=== PATIENT | female | born 1955 | race Caucasian/White ===

== ENCOUNTER 2016-07-28 19:03 | Inpatient (IN) | payer MEDICARE, MEDICAID ==
[~2016-07-28] VITALS: Ht 157.5 cm; Wt 123.0 kg
[~2016-07-28 19:03] MED LIST: FURO40TA; GABA300C8 PO; LISI-646; POTA8TAB2
[2016-07-28 21:15] LABS: DEFINITIVE VIEW TRANSMISSION; Hemoglobin 14.1 g/dL (12.2-16.2); Mean Corpuscular Hemoglobin 25.1 pg (28.0-32.0); Mean Corpuscular Hgb Conc. 32.1 g/dL (32.0-36.0); Mean Corpuscular Volume 78.2 fL (80.0-100.0); Mean Platelet Volume 11.4 fL (7.4-10.4); Platelet Count (auto) 242 10^3/uL (140-450); Red Cell Distribution Width 16.3 % (11.6-16.0); SUSPECT VIEW TRANSMISSION
[2016-07-28 21:26] LABS: White Blood Cell 34.3 10^3/uL (4.4-10.8)
[2016-07-28 21:27] LABS: Metamyelocytes % 0; Myelocytes % 0; Promyelocytes % 0; Reactive Lymphocytes 0
[2016-07-28 21:36] LABS: Partial Thromboplastin Time 34.3 sec (22.64-33.71)
[2016-07-28 21:37] LABS: Albumin 2.6 g/dL (3.4-5.0); BUN/Creatinine Ratio 16.7; Calcium 9.2 mg/dL (8.5-10.1); Magnesium 1.9 mg/dL (1.6-2.6); Potassium 3.8 mmol/L (3.5-5.1)
[2016-07-28 21:39] LABS: Bilirubin, Total 0.9 mg/dL (0.2-1.0); Total Protein 8.3 g/dL (6.4-8.2)
[2016-07-28 21:52] LABS: INR 1.3 (0.9-1.15); Prothrombin Time 13.4 sec (9.37-12.3)
[2016-07-28] MEDS ORDERED: FUROSEMIDE 20 MG/2 ML VIAL IV ONE (22:45)
[2016-07-28 22:58] LABS: Hypochromia Slight; Microcytosis Slight; Platelet Estimate Adequate
[2016-07-29] MEDS ORDERED: LEVOFLOXACIN 750MG 150 ML IV ONE (02:45)
[2016-07-29 03:20] LABS: B-Type Natriuretic Peptide 189.1 pg/mL (0-100); Temperature: 21.1 C (20.0-25.0)
[2016-07-29] MEDS ORDERED: ACETAMINOPHEN 650 mg PER 20 mL UD PO ONE (03:45)
[2016-07-29] MEDS ORDERED: IPRATROPIUM BROM 0.5 MG/2.5ML INH SOL NEB ONE (04:00)
[2016-07-29] MEDS ORDERED: ALBUTEROL SULF 2.5 MG/0.5ML(0.5%) NEB SOLN NEB ONE (04:00)
[2016-07-29] MEDS ORDERED: traMADol HCL 50 MG TAB PO ONE (05:30)
[2016-07-29 08:00] LABS: Urine Bilirubin Negative (Negative); Urine Color Yellow (Yellow); Urine Glucose Normal (Normal); Urine Ketone Negative (Negative); Urine Mucus FEW (None Seen); Urine Nitrite Negative (Negative); Urine RBC 6 /hpf (0 - 4); Urine Squamous Epithelial Cell FEW /hpf (<5); Urine Urobilinogen Normal (Negative); Urine pH 5.5 (5.0-8.0)
[2016-07-29 08:03] LABS: Urine Blood 1+ /uL (Negative)
[2016-07-29] MEDS ORDERED: DEXTROSE (50%) 50ML SYRG IV PRN (09:00)
[2016-07-29] MEDS ORDERED: VANCOMYCIN PER PHARMACY 0 MG IV SCH (09:00)
[2016-07-29] MEDS ORDERED: PROMETHAZINE HCL 25 MG/ML 1ML IV PRN (09:15)
[2016-07-29] MEDS ORDERED: DOCUSATE SOD 100 MG CAP PO PRN (09:15)
[2016-07-29] MEDS ORDERED: MORPHINE SULF INJ 2 MG/ML SYRINGE 1ML IV PRN ×2 (09:15)
[2016-07-29] MEDS ORDERED: NITROGLYCERIN 0.4 MG SL TAB SL PRN (09:15)
[2016-07-29] MEDS: cefTRIAXone 1GM/50ML D5W 50 ML IV SCH (10:23)
[2016-07-29] MEDS: POTASSIUM CHLORIDE 8 MEQ TAB PO SCH (10:23)
[2016-07-29] MEDS: FAMOTIDINE 20 MG TAB PO SCH ×2 (10:24→21:35)
[2016-07-29] MEDS: MULTIPLE VITAMIN TAB PO SCH (10:24)
[2016-07-29] MEDS: LISINOPRIL 20 MG TAB PO SCH (10:24)
[2016-07-29] MEDS: GABAPENTIN 300 MG CAP PO SCH ×2 (10:24→21:35)
[2016-07-29] MEDS: INSULIN DETEMIR(LEVEMIR) 1unit/0.01ml Soln (100units/ml) SC SCH ×2 (10:25→21:54)
[2016-07-29] MEDS ORDERED: VANCOMYCIN 1,500 MG in D5W 5% 250 ML IV ONE (10:30)
[2016-07-29] MEDS: SODIUM CHLORIDE 0.9% 1,000 ML IV SCH ×2 (11:23→19:30)
[2016-07-29] MEDS: ACCU-CHEK COMFORT CURVE STRIP VI SCH ×3 (11:47→21:35)
[2016-07-29] MEDS: InsuLIN REG 1unit/0.01ml Soln (100units/ml) SC SCH ×3 (11:47→21:53)
[2016-07-29 13:02] VITALS: BP 127/89
[2016-07-29] MEDS: Boost Glucose Control 8 Ounces PO SCH ×3 (13:19→21:35)
[2016-07-29 13:26] VITALS: BP 127/89
[2016-07-29] MEDS ORDERED: POTA8TAB2 PO (13:42)
[2016-07-29] MEDS ORDERED: GABA300C8 PO (13:42)
[2016-07-29] MEDS ORDERED: FURO40TA4 PO (13:42)
[2016-07-29] MEDS ORDERED: LISI-646 PO (13:42)
[2016-07-29] MEDS ORDERED: POTA10TA79 PO (13:42)
[2016-07-29] MEDS: IPRATROPIUM BROM 0.5 MG/2.5ML INH SOL NEB SCH ×2 (14:00→22:24)
[2016-07-29] MEDS: ALBUTEROL SULF 2.5 MG/0.5ML(0.5%) NEB SOLN NEB SCH ×2 (14:00→22:24)
[2016-07-29 16:39] VITALS: BP 118/77
[2016-07-29 22:00] VITALS: BP 111/54
[2016-07-30 01:44] VITALS: BP 108/56
[2016-07-30] MEDS: SODIUM CHLORIDE 0.9% 1,000 ML IV SCH ×2 (03:57→09:48)
[2016-07-30] MEDS: ACETAMINOPHEN 325 MG TAB PO PRN ×2 (04:02→10:58)
[2016-07-30 05:00] VITALS: BP 122/60
[2016-07-30] MEDS: Boost Glucose Control 8 Ounces PO SCH ×4 (05:42→21:33)
[2016-07-30 06:24] LABS: DEFINITIVE VIEW TRANSMISSION; Hematocrit 34.5 % (36.0-46.0); Hemoglobin 10.9 g/dL (12.2-16.2); Mean Corpuscular Hemoglobin 25.1 pg (28.0-32.0); Mean Corpuscular Hgb Conc. 31.7 g/dL (32.0-36.0); Mean Platelet Volume 10.9 fL (7.4-10.4); Platelet Count (auto) 185 10^3/uL (140-450); SUSPECT VIEW TRANSMISSION; White Blood Cell 20.5 10^3/uL (4.4-10.8)
[2016-07-30] MEDS: InsuLIN REG 1unit/0.01ml Soln (100units/ml) SC SCH ×4 (06:35→21:34)
[2016-07-30] MEDS: ACCU-CHEK COMFORT CURVE STRIP VI SCH ×4 (06:35→21:31)
[2016-07-30 06:39] LABS: Metamyelocytes % 0; Myelocytes % 0; Promyelocytes % 0; Reactive Lymphocytes 0
[2016-07-30 06:48] LABS: Albumin 1.6 g/dL (3.4-5.0); BUN/Creatinine Ratio 26.2; Calcium 8.2 mg/dL (8.5-10.1); Potassium 3.9 mmol/L (3.5-5.1)
[2016-07-30 06:51] LABS: Bilirubin, Total 0.2 mg/dL (0.2-1.0); Total Protein 6.3 g/dL (6.4-8.2)
[2016-07-30 06:56] LABS: Hypochromia Slight; Microcytosis Slight; Platelet Estimate Adequate
[2016-07-30] MEDS: ALBUTEROL SULF 2.5 MG/0.5ML(0.5%) NEB SOLN NEB SCH ×2 (07:03→20:26)
[2016-07-30] MEDS: IPRATROPIUM BROM 0.5 MG/2.5ML INH SOL NEB SCH ×2 (07:03→20:26)
[2016-07-30] MEDS: cefTRIAXone 1GM/50ML D5W 50 ML IV SCH (09:00)
[2016-07-30 09:15] VITALS: BP 107/68
[2016-07-30] MEDS: GABAPENTIN 300 MG CAP PO SCH ×2 (09:43→21:33)
[2016-07-30] MEDS: MULTIPLE VITAMIN TAB PO SCH (09:43)
[2016-07-30] MEDS: POTASSIUM CHLORIDE 8 MEQ TAB PO SCH (09:44)
[2016-07-30] MEDS: FUROSEMIDE 40 MG TAB PO SCH (09:44)
[2016-07-30] MEDS: FAMOTIDINE 20 MG TAB PO SCH ×2 (09:44→21:33)
[2016-07-30] MEDS: LISINOPRIL 20 MG TAB PO SCH (09:45)
[2016-07-30] MEDS: INSULIN DETEMIR(LEVEMIR) 1unit/0.01ml Soln (100units/ml) SC SCH ×2 (09:52→21:43)
[2016-07-30] MEDS: VANCOMYCIN 1,250 MG in D5W 5% 250 ML IV SCH (11:03)
[2016-07-30 13:00] VITALS: BP 113/71
[2016-07-30 17:00] VITALS: BP 106/64
[2016-07-30] MEDS: HYDROcodone-ACET 5/325MG TAB PO PRN ×2 (17:40→21:33)
[2016-07-30 21:52] VITALS: BP 103/66
[2016-07-31] MEDS: SODIUM CHLORIDE 0.9% 1,000 ML IV SCH ×3 (01:17→21:33)
[2016-07-31] MEDS: HYDROcodone-ACET 5/325MG TAB PO PRN ×2 (03:25→15:20)
[2016-07-31 04:39] VITALS: BP 99/65
[2016-07-31] MEDS: Boost Glucose Control 8 Ounces PO SCH ×4 (05:37→21:35)
[2016-07-31 06:03] LABS: Basophils # (auto) 0 uL; Basophils % (auto) 0.3 % (0.0-2.0); DEFINITIVE VIEW TRANSMISSION; Eosinophils # (auto) 0.3 uL; Eosinophils % (auto) 2.9 % (0.0-7.0); Hematocrit 32.1 % (36.0-46.0); Hemoglobin 10.2 g/dL (12.2-16.2); Lymphocytes # (auto) 1.3 uL; Lymphocytes % (auto) 12.1 % (10.0-50.0); Mean Corpuscular Hgb Conc. 31.9 g/dL (32.0-36.0); Mean Corpuscular Volume 78.6 fL (80.0-100.0); Mean Platelet Volume 10.5 fL (7.4-10.4); Monocytes # (auto) 0.9 uL; Monocytes % (auto) 7.9 % (0.0-12.0); Neutrophils # (auto) 8.3 uL; Neutrophils % (auto) 76.8 % (37.0-80.0); Platelet Count (auto) 201 10^3/uL (140-450); Red Cell Distribution Width 17.4 % (11.6-16.0); White Blood Cell 10.8 10^3/uL (4.4-10.8)
[2016-07-31] MEDS: InsuLIN REG 1unit/0.01ml Soln (100units/ml) SC SCH ×5 (06:31→22:03)
[2016-07-31] MEDS: ACCU-CHEK COMFORT CURVE STRIP VI SCH ×4 (06:31→21:41)
[2016-07-31] MEDS: ALBUTEROL SULF 2.5 MG/0.5ML(0.5%) NEB SOLN NEB SCH ×4 (06:35→21:45)
[2016-07-31] MEDS: IPRATROPIUM BROM 0.5 MG/2.5ML INH SOL NEB SCH ×3 (06:35→21:45)
[2016-07-31 06:51] LABS: Albumin 1.7 g/dL (3.4-5.0); BUN/Creatinine Ratio 35.6; Bilirubin, Total 0.2 mg/dL (0.2-1.0); Calcium 8.4 mg/dL (8.5-10.1); Potassium 3.9 mmol/L (3.5-5.1); Total Protein 6.1 g/dL (6.4-8.2)
[2016-07-31 09:00] VITALS: BP 107/78
[2016-07-31] MEDS: cefTRIAXone 1GM/50ML D5W 50 ML IV SCH (09:00)
[2016-07-31] MEDS: FAMOTIDINE 20 MG TAB PO SCH ×2 (10:00→21:33)
[2016-07-31] MEDS: LISINOPRIL 20 MG TAB PO SCH (11:07)
[2016-07-31] MEDS: GABAPENTIN 300 MG CAP PO SCH ×2 (11:08→21:33)
[2016-07-31] MEDS: MULTIPLE VITAMIN TAB PO SCH (11:08)
[2016-07-31] MEDS: FUROSEMIDE 40 MG TAB PO SCH (11:08)
[2016-07-31] MEDS: POTASSIUM CHLORIDE 8 MEQ TAB PO SCH (11:08)
[2016-07-31] MEDS: INSULIN DETEMIR(LEVEMIR) 1unit/0.01ml Soln (100units/ml) SC SCH ×2 (11:12→22:00)
[2016-07-31] MEDS: VANCOMYCIN 1,250 MG in D5W 5% 250 ML IV SCH (12:49)
[2016-07-31 13:00] VITALS: BP 137/83
[2016-07-31 16:38] VITALS: BP 129/83
[2016-07-31 22:00] VITALS: BP 124/77
[2016-08-01] MEDS: HYDROcodone-ACET 5/325MG TAB PO PRN (00:36)
[2016-08-01] MEDS: SODIUM CHLORIDE 0.9% 1,000 ML IV SCH ×3 (05:00→20:25)
[2016-08-01 05:15] LABS: Basophils # (auto) 0.1 uL; Basophils % (auto) 0.5 % (0.0-2.0); DEFINITIVE VIEW TRANSMISSION; Eosinophils # (auto) 0.4 uL; Eosinophils % (auto) 3.8 % (0.0-7.0); Hematocrit 33.1 % (36.0-46.0); Hemoglobin 10.6 g/dL (12.2-16.2); Lymphocytes % (auto) 17.6 % (10.0-50.0); Mean Corpuscular Hemoglobin 25.6 pg (28.0-32.0); Mean Corpuscular Hgb Conc. 32.1 g/dL (32.0-36.0); Mean Corpuscular Volume 79.8 fL (80.0-100.0); Mean Platelet Volume 9.3 fL (7.4-10.4); Monocytes # (auto) 0.8 uL; Monocytes % (auto) 7.1 % (0.0-12.0); Neutrophils # (auto) 7.8 uL; Platelet Count (auto) 189 10^3/uL (140-450); Red Cell Distribution Width 16.2 % (11.6-16.0); SUSPECT VIEW TRANSMISSION; White Blood Cell 11.1 10^3/uL (4.4-10.8)
[2016-08-01 05:30] VITALS: BP 158/96
[2016-08-01 05:35] LABS: Albumin 1.8 g/dL (3.4-5.0); BUN/Creatinine Ratio 33.3; Calcium 7.9 mg/dL (8.5-10.1); Potassium 4.2 mmol/L (3.5-5.1)
[2016-08-01 05:37] LABS: Bilirubin, Total 0.1 mg/dL (0.2-1.0); Total Protein 6.3 g/dL (6.4-8.2)
[2016-08-01] MEDS: Boost Glucose Control 8 Ounces PO SCH (06:00)
[2016-08-01] MEDS: ACCU-CHEK COMFORT CURVE STRIP VI SCH ×4 (06:56→21:50)
[2016-08-01] MEDS: InsuLIN REG 1unit/0.01ml Soln (100units/ml) SC SCH ×4 (06:56→22:04)
[2016-08-01] MEDS: ALBUTEROL SULF 2.5 MG/0.5ML(0.5%) NEB SOLN NEB SCH ×2 (07:08→14:50)
[2016-08-01] MEDS: IPRATROPIUM BROM 0.5 MG/2.5ML INH SOL NEB SCH ×2 (07:08→14:50)
[2016-08-01] MEDS: cefTRIAXone 1GM/50ML D5W 50 ML IV SCH (09:09)
[2016-08-01] MEDS: GABAPENTIN 300 MG CAP PO SCH ×2 (09:10→21:50)
[2016-08-01] MEDS: POTASSIUM CHLORIDE 8 MEQ TAB PO SCH (09:10)
[2016-08-01] MEDS: MULTIPLE VITAMIN TAB PO SCH (09:10)
[2016-08-01] MEDS: FUROSEMIDE 40 MG TAB PO SCH (09:11)
[2016-08-01] MEDS: FAMOTIDINE 20 MG TAB PO SCH ×2 (09:12→21:50)
[2016-08-01] MEDS: LISINOPRIL 20 MG TAB PO SCH (09:12)
[2016-08-01] MEDS: INSULIN DETEMIR(LEVEMIR) 1unit/0.01ml Soln (100units/ml) SC SCH ×2 (09:14→22:04)
[2016-08-01 09:22] VITALS: BP 156/96
[2016-08-01] MEDS: VANCOMYCIN 1,250 MG in D5W 5% 250 ML IV SCH (11:00)
[2016-08-01 13:00] VITALS: BP 159/90
[2016-08-01 16:59] VITALS: BP 158/100
[2016-08-01 22:00] VITALS: BP 142/76
[2016-08-02] VITALS (7 sets, daily range): BP systolic 143–169; BP diastolic 70–102
[2016-08-02] MEDS: SODIUM CHLORIDE 0.9% 1,000 ML IV SCH ×3 (04:45→22:06)
[2016-08-02 05:17] LABS: Basophils # (auto) 0 uL; Basophils % (auto) 0.4 % (0.0-2.0); DEFINITIVE VIEW TRANSMISSION; Eosinophils # (auto) 0.4 uL; Eosinophils % (auto) 4.1 % (0.0-7.0); Hematocrit 33.2 % (36.0-46.0); Hemoglobin 10.7 g/dL (12.2-16.2); Lymphocytes # (auto) 1.7 uL; Mean Corpuscular Hgb Conc. 32.1 g/dL (32.0-36.0); Mean Corpuscular Volume 77.7 fL (80.0-100.0); Mean Platelet Volume 9.2 fL (7.4-10.4); Monocytes # (auto) 0.9 uL; Monocytes % (auto) 9.3 % (0.0-12.0); Neutrophils # (auto) 6.7 uL; Neutrophils % (auto) 69.2 % (37.0-80.0); Platelet Count (auto) 240 10^3/uL (140-450); Red Cell Distribution Width 17.4 % (11.6-16.0); White Blood Cell 9.8 10^3/uL (4.4-10.8)
[2016-08-02 05:45] LABS: BUN/Creatinine Ratio 32.4; Bilirubin, Total 0.2 mg/dL (0.2-1.0); Potassium 4.4 mmol/L (3.5-5.1); Total Protein 6.6 g/dL (6.4-8.2)
[2016-08-02] MEDS: ALBUTEROL SULF 2.5 MG/0.5ML(0.5%) NEB SOLN NEB SCH ×3 (06:36→21:00)
[2016-08-02] MEDS: IPRATROPIUM BROM 0.5 MG/2.5ML INH SOL NEB SCH ×3 (06:36→21:00)
[2016-08-02] MEDS: InsuLIN REG 1unit/0.01ml Soln (100units/ml) SC SCH ×4 (07:00→22:09)
[2016-08-02] MEDS: ACCU-CHEK COMFORT CURVE STRIP VI SCH ×4 (07:00→22:05)
[2016-08-02] MEDS: POTASSIUM CHLORIDE 8 MEQ TAB PO SCH (10:11)
[2016-08-02] MEDS: MULTIPLE VITAMIN TAB PO SCH (10:11)
[2016-08-02] MEDS: LISINOPRIL 20 MG TAB PO SCH (10:12)
[2016-08-02] MEDS: GABAPENTIN 300 MG CAP PO SCH ×2 (10:13→22:05)
[2016-08-02] MEDS: FAMOTIDINE 20 MG TAB PO SCH ×2 (10:13→22:05)
[2016-08-02] MEDS: FUROSEMIDE 40 MG TAB PO SCH (10:14)
[2016-08-02] MEDS: cefTRIAXone 1GM/50ML D5W 50 ML IV SCH (10:14)
[2016-08-02] MEDS: Boost Glucose Control 8 Ounces PO SCH ×2 (10:14→15:00)
[2016-08-02] MEDS: INSULIN DETEMIR(LEVEMIR) 1unit/0.01ml Soln (100units/ml) SC SCH ×2 (10:22→22:16)
[2016-08-02] MEDS: VANCOMYCIN 1,250 MG in D5W 5% 250 ML IV SCH (12:57)
[2016-08-02] MEDS: HYDROcodone-ACET 5/325MG TAB PO PRN ×2 (15:53→20:31)
[2016-08-02] MEDS: AZITHROMYCIN 250 MG TAB PO SCH (19:47)
[2016-08-02] MEDS: TEMAZEPAM 15 MG CAP PO PRN (22:05)
[2016-08-03] MEDS: HYDROcodone-ACET 5/325MG TAB PO PRN ×3 (04:56→17:48)
[2016-08-03 05:00] VITALS: BP 161/103
[2016-08-03] MEDS: SODIUM CHLORIDE 0.9% 1,000 ML IV SCH ×3 (05:05→22:25)
[2016-08-03] MEDS: ACCU-CHEK COMFORT CURVE STRIP VI SCH ×4 (06:30→22:25)
[2016-08-03] MEDS: InsuLIN REG 1unit/0.01ml Soln (100units/ml) SC SCH ×4 (06:30→22:00)
[2016-08-03] MEDS: IPRATROPIUM BROM 0.5 MG/2.5ML INH SOL NEB SCH ×3 (07:15→22:16)
[2016-08-03] MEDS: ALBUTEROL SULF 2.5 MG/0.5ML(0.5%) NEB SOLN NEB SCH ×3 (07:15→22:16)
[2016-08-03 09:00] VITALS: BP 154/88
[2016-08-03] MEDS: INSULIN DETEMIR(LEVEMIR) 1unit/0.01ml Soln (100units/ml) SC SCH ×2 (10:00→22:37)
[2016-08-03] MEDS: Boost Glucose Control 8 Ounces PO SCH ×2 (10:00→15:00)
[2016-08-03] MEDS: AZITHROMYCIN 250 MG TAB PO SCH (10:33)
[2016-08-03] MEDS: FAMOTIDINE 20 MG TAB PO SCH ×2 (10:33→22:24)
[2016-08-03] MEDS: GABAPENTIN 300 MG CAP PO SCH ×2 (10:33→22:24)
[2016-08-03] MEDS: POTASSIUM CHLORIDE 8 MEQ TAB PO SCH (10:34)
[2016-08-03] MEDS: LISINOPRIL 20 MG TAB PO SCH (10:34)
[2016-08-03] MEDS: MULTIPLE VITAMIN TAB PO SCH (10:35)
[2016-08-03] MEDS: FUROSEMIDE 40 MG TAB PO SCH (10:35)
[2016-08-03] MEDS: cefTRIAXone 1GM/50ML D5W 50 ML IV SCH (10:36)
[2016-08-03] MEDS: VANCOMYCIN 1,250 MG in D5W 5% 250 ML IV SCH (12:09)
[2016-08-03 12:47] VITALS: BP 164/89
[2016-08-03 17:09] VITALS: BP 168/97
[2016-08-03 22:00] VITALS: BP 150/78
[2016-08-03] MEDS: TEMAZEPAM 15 MG CAP PO PRN (22:26)
[2016-08-04] MEDS: HYDROcodone-ACET 5/325MG TAB PO PRN ×4 (01:30→22:10)
[2016-08-04 05:48] VITALS: BP 155/93
[2016-08-04] MEDS: SODIUM CHLORIDE 0.9% 1,000 ML IV SCH ×2 (06:28→15:21)
[2016-08-04] MEDS: ALBUTEROL SULF 2.5 MG/0.5ML(0.5%) NEB SOLN NEB SCH ×3 (06:35→22:16)
[2016-08-04] MEDS: IPRATROPIUM BROM 0.5 MG/2.5ML INH SOL NEB SCH ×3 (06:35→22:16)
[2016-08-04] MEDS: ACCU-CHEK COMFORT CURVE STRIP VI SCH ×4 (06:38→22:13)
[2016-08-04] MEDS: InsuLIN REG 1unit/0.01ml Soln (100units/ml) SC SCH ×4 (06:38→21:56)
[2016-08-04 08:38] VITALS: BP 151/78
[2016-08-04] MEDS: cefTRIAXone 1GM/50ML D5W 50 ML IV SCH (09:14)
[2016-08-04] MEDS: LISINOPRIL 20 MG TAB PO SCH (09:58)
[2016-08-04] MEDS: POTASSIUM CHLORIDE 8 MEQ TAB PO SCH (09:58)
[2016-08-04] MEDS: FAMOTIDINE 20 MG TAB PO SCH ×2 (09:58→22:09)
[2016-08-04] MEDS: AZITHROMYCIN 250 MG TAB PO SCH (09:58)
[2016-08-04] MEDS: GABAPENTIN 300 MG CAP PO SCH ×2 (09:58→22:09)
[2016-08-04] MEDS: FUROSEMIDE 40 MG TAB PO SCH (09:59)
[2016-08-04] MEDS: Boost Glucose Control 8 Ounces PO SCH ×2 (10:00→15:20)
[2016-08-04] MEDS: MULTIPLE VITAMIN TAB PO SCH (10:00)
[2016-08-04] MEDS: INSULIN DETEMIR(LEVEMIR) 1unit/0.01ml Soln (100units/ml) SC SCH ×2 (10:05→22:13)
[2016-08-04] MEDS: VANCOMYCIN 1,250 MG in D5W 5% 250 ML IV SCH (11:41)
[2016-08-04 12:33] VITALS: BP 141/86
[2016-08-04] MEDS: ACETAMINOPHEN 325 MG TAB PO PRN (12:39)
[2016-08-04 16:36] VITALS: BP 146/84
[2016-08-04 22:00] VITALS: BP 149/70
[2016-08-04] MEDS: TEMAZEPAM 15 MG CAP PO PRN (22:10)
[2016-08-05] MEDS: HYDROcodone-ACET 5/325MG TAB PO PRN ×3 (04:48→17:52)
[2016-08-05] MEDS: SODIUM CHLORIDE 0.9% 1,000 ML IV SCH ×3 (05:18→16:05)
[2016-08-05 06:07] VITALS: BP 133/54
[2016-08-05] MEDS: InsuLIN REG 1unit/0.01ml Soln (100units/ml) SC SCH ×4 (06:29→22:29)
[2016-08-05] MEDS: ACCU-CHEK COMFORT CURVE STRIP VI SCH ×4 (06:30→22:31)
[2016-08-05] MEDS: IPRATROPIUM BROM 0.5 MG/2.5ML INH SOL NEB SCH ×3 (07:32→22:24)
[2016-08-05] MEDS: ALBUTEROL SULF 2.5 MG/0.5ML(0.5%) NEB SOLN NEB SCH ×3 (07:33→22:24)
[2016-08-05 08:17] VITALS: BP 153/84
[2016-08-05] MEDS: AZITHROMYCIN 250 MG TAB PO SCH (09:46)
[2016-08-05] MEDS: LISINOPRIL 20 MG TAB PO SCH (09:47)
[2016-08-05] MEDS: MULTIPLE VITAMIN TAB PO SCH (09:47)
[2016-08-05] MEDS: FUROSEMIDE 40 MG TAB PO SCH (09:47)
[2016-08-05] MEDS: FAMOTIDINE 20 MG TAB PO SCH ×2 (09:48→22:28)
[2016-08-05] MEDS: GABAPENTIN 300 MG CAP PO SCH ×2 (09:48→22:28)
[2016-08-05] MEDS: POTASSIUM CHLORIDE 8 MEQ TAB PO SCH (09:48)
[2016-08-05] MEDS: Boost Glucose Control 8 Ounces PO SCH ×2 (10:05→15:27)
[2016-08-05] MEDS: INSULIN DETEMIR(LEVEMIR) 1unit/0.01ml Soln (100units/ml) SC SCH ×2 (10:07→22:30)
[2016-08-05] MEDS: cefTRIAXone 1GM/50ML D5W 50 ML IV SCH (11:37)
[2016-08-05 13:21] VITALS: BP 159/71
[2016-08-05] MEDS: VANCOMYCIN 1,250 MG in D5W 5% 250 ML IV SCH (15:25)
[2016-08-05 16:57] VITALS: BP 130/68
[2016-08-05 20:50] VITALS: BP 130/87
[2016-08-05 21:48] VITALS: BP 151/87
[2016-08-06 04:57] VITALS: BP 148/101
[2016-08-06] MEDS: HYDROcodone-ACET 5/325MG TAB PO PRN (05:30)
[2016-08-06] MEDS: SODIUM CHLORIDE 0.9% 1,000 ML IV SCH ×2 (05:30→08:45)
[2016-08-06] MEDS: IPRATROPIUM BROM 0.5 MG/2.5ML INH SOL NEB SCH ×2 (05:36→13:23)
[2016-08-06] MEDS: ALBUTEROL SULF 2.5 MG/0.5ML(0.5%) NEB SOLN NEB SCH ×2 (05:37→13:23)
[2016-08-06] MEDS: InsuLIN REG 1unit/0.01ml Soln (100units/ml) SC SCH ×2 (06:27→11:30)
[2016-08-06] MEDS: ACCU-CHEK COMFORT CURVE STRIP VI SCH ×2 (06:27→11:30)
[2016-08-06 07:20] VITALS: BP 144/79
[2016-08-06 09:00] VITALS: BP 157/86
[2016-08-06] MEDS: cefTRIAXone 1GM/50ML D5W 50 ML IV SCH (09:26)
[2016-08-06] MEDS: AZITHROMYCIN 250 MG TAB PO SCH (09:26)
[2016-08-06] MEDS: FAMOTIDINE 20 MG TAB PO SCH (09:27)
[2016-08-06] MEDS: GABAPENTIN 300 MG CAP PO SCH (09:27)
[2016-08-06] MEDS: MULTIPLE VITAMIN TAB PO SCH (09:27)
[2016-08-06] MEDS: LISINOPRIL 20 MG TAB PO SCH (09:27)
[2016-08-06] MEDS: POTASSIUM CHLORIDE 8 MEQ TAB PO SCH (09:27)
[2016-08-06] MEDS: FUROSEMIDE 40 MG TAB PO SCH (09:27)
[2016-08-06] MEDS: Boost Glucose Control 8 Ounces PO SCH (09:28)
[2016-08-06] MEDS: INSULIN DETEMIR(LEVEMIR) 1unit/0.01ml Soln (100units/ml) SC SCH (09:33)
[2016-08-06] MEDS: VANCOMYCIN 1,250 MG in D5W 5% 250 ML IV SCH (11:00)
[2016-08-06 12:05] VITALS: BP 151/77
[2016-08-06 12:06] VITALS: BP 151/77
== END 2016-08-06 13:42 | disposition home or self-care (01) | DRG 871 ==
LOC: EDBD 19:03 → ER 19:19 → TELE 19:20 → TELE-CENTR 07-29 11:12 → CENTRAL 08-01 23:56
PROVIDERS: ADMIT Internal Medicine; ATTEND Internal Medicine Pulmonary Disease
DX: A41.9 Sepsis, unspecified organism (principal); E43 Unspecified severe protein-calorie malnutrition; J69.0 Pneumonitis due to inhalation of food and vomit; N17.9 Acute kidney failure, unspecified; D68.9 Coagulation defect, unspecified; E87.1 Hypo-osmolality and hyponatremia; I13.0 Hypertensive heart and chronic kidney disease with heart failure and stage 1 through stage 4 chronic kidney disease, or unspecified chronic kidney disease; N39.0 Urinary tract infection, site not specified; J44.0 Chronic obstructive pulmonary disease with (acute) lower respiratory infection; Z68.42 Body mass index [BMI] 45.0-49.9, adult; Z82.49 Family history of ischemic heart disease and other diseases of the circulatory system; E66.01 Morbid (severe) obesity due to excess calories; N18.9 Chronic kidney disease, unspecified; I50.9 Heart failure, unspecified; E86.0 Dehydration; F17.210 Nicotine dependence, cigarettes, uncomplicated; I25.10 Atherosclerotic heart disease of native coronary artery without angina pectoris; I73.9 Peripheral vascular disease, unspecified; J32.0 Chronic maxillary sinusitis; K57.30 Diverticulosis of large intestine without perforation or abscess without bleeding; N20.0 Calculus of kidney; E11.21 Type 2 diabetes mellitus with diabetic nephropathy; E11.22 Type 2 diabetes mellitus with diabetic chronic kidney disease; R09.1 Pleurisy; Z98.890 Other specified postprocedural states; I25.2 Old myocardial infarction; Z79.4 Long term (current) use of insulin; Z83.3 Family history of diabetes mellitus; Z88.8 Allergy status to other drugs, medicaments and biological substances
CPT/HCPCS: 36415; 51702; 70450; 71010; 71020; 74176; 80053; 80202; 80320; 81001; 82962; 83036; 83605; 83615; 83690; 83735; 83880; 84443; 84484; 85007; 85025; 85027; 85610; 85730; 87040; 87086; 93005; 93306; 94640; 94761; 96365; 96366; 96375; 97001; G0434; J0696; J1815; J1956; J7060

== ENCOUNTER 2018-05-14 16:23 | Inpatient (IN) | payer OTHER, MEDICAID ==
[~2018-05-14] VITALS: Ht 160 cm; Wt 132.8 kg
[~2018-05-14 16:23] MED LIST changes: +ALBUAER3 IN; +ASPI-231 PO; +DOXY-216 PO; -FURO40TA; +FURO40TA4 PO; +GABA300C10 PO; -GABA300C8 PO; +INSDRIP SUBCUT; +LEVO-28 PO; -LISI-646; +LISI-646 PO; +POTA10TA79 PO; -POTA8TAB2
[2018-05-14 17:09] LABS: Basophils # (auto) 0.1 uL; Eosinophils # (auto) 0.5 uL; Lymphocytes # (auto) 1.9 uL; Monocytes # (auto) 1.3 uL
[2018-05-14 17:12] LABS: Basophils % (auto) 0.5 % (0.0-2.0); Eosinophils % (auto) 3.3 % (0.0-7.0); Hematocrit 37.7 % (36.0-46.0); Hemoglobin 11.8 g/dL (12.2-16.2); Lymphocytes % (auto) 11.6 % (10.0-50.0); Mean Corpuscular Hemoglobin 24.5 pg (28.0-32.0); Mean Corpuscular Hgb Conc. 31.3 g/dL (32.0-36.0); Mean Corpuscular Volume 78.3 fL (80.0-100.0); Monocytes % (auto) 8.2 % (0.0-12.0); Neutrophils # (auto) 12.3 uL; Neutrophils % (auto) 76.4 % (37.0-80.0); Platelet Count (auto) 262 10^3/uL (140-450); Red Blood Cells 4.82 10^6/uL (4.0-5.20); Red Cell Distribution Width 17.7 % (11.8-14.3); White Blood Cell 16.1 10^3/uL (4.4-10.8)
[2018-05-14 17:22] LABS: INR 0.98 (0.9-1.15); Partial Thromboplastin Time 21.9 sec (23.78-33.04); Prothrombin Time 10.5 sec (9.27-12.13)
[2018-05-14 17:24] LABS: Albumin 3.1 g/dL (3.4-5.0); Calcium 9.1 mg/dL (8.5-10.1); Potassium 4.8 mmol/L (3.5-5.1)
[2018-05-14 17:26] LABS: BUN/Creatinine Ratio 11.2
[2018-05-14 17:40] LABS: Bilirubin, Total 0.6 mg/dL (0.2-1.0); Total Protein 9.1 g/dL (6.4-8.2)
[2018-05-14] MEDS ORDERED: AZITHROMYCIN 500MG/ 250ML 250 ML IV ONE (19:15)
[2018-05-14] MEDS ORDERED: methylPREDNISolone SOD SUCC 125 MG/2 ML VL IV ONE (19:15)
[2018-05-14 20:49] LABS: Urine Bacteria MANY /hpf (None Seen); Urine Blood Negative /uL (Negative); Urine Hyaline Cast FEW /lpf (0 - 2); Urine Mucus FEW (None Seen); Urine Specific Gravity 1.016 (1.001-1.035); Urine WBC 48 /hpf (0 - 5)
[2018-05-14] MEDS ORDERED: MORPHINE SULFATE 4 MG/ML SYR/VIAL IV PRN (21:00)
[2018-05-14] MEDS ORDERED: ALBUTEROL SULF 2.5 MG/0.5ML(0.5%) NEB SOLN NEB PRN (21:00)
[2018-05-14] MEDS ORDERED: ACETAMINOPHEN 325 MG TAB PO PRN (21:00)
[2018-05-14] MEDS ORDERED: NITROGLYCERIN 0.4 MG SL TAB SL PRN (21:00)
[2018-05-14] MEDS ORDERED: DEXTROSE (50%) 50ML SYRG IV PRN (21:00)
[2018-05-14] MEDS ORDERED: ONDANSETRON HCL 4 MG/2 ML VIAL IV PRN (21:00)
[2018-05-14 21:30] VITALS: BP 144/85
[2018-05-14] MEDS ORDERED: LEVOFLOXACIN 250MG 50 ML IV ONE (21:45)
[2018-05-14] MEDS: GABAPENTIN 300 MG CAP PO SCH (22:18)
[2018-05-14 22:36] VITALS: BP 135/87
[2018-05-14] MEDS: HYDROcodone-ACET 5/325MG TAB PO PRN (23:16)
[2018-05-14] MEDS ORDERED: ATOR20TA PO (23:39)
[2018-05-14] MEDS: ACCU-CHEK COMFORT CURVE STRIP VI SCH (23:51)
[2018-05-14] MEDS: InsuLIN REG 1unit/0.01ml Soln (100units/ml) SC SCH (23:52)
[2018-05-15 04:56] VITALS: BP 107/69
[2018-05-15] MEDS: ACCU-CHEK COMFORT CURVE STRIP VI SCH ×4 (06:08→23:57)
[2018-05-15] MEDS: InsuLIN REG 1unit/0.01ml Soln (100units/ml) SC SCH ×4 (06:08→23:57)
[2018-05-15 06:15] LABS: Basophils # (auto) 0 uL; Basophils % (auto) 0.2 % (0.0-2.0); Eosinophils # (auto) 0 uL; Lymphocytes # (auto) 0.7 uL; Lymphocytes % (auto) 6.3 % (10.0-50.0); Monocytes # (auto) 0.2 uL; Red Blood Cells 4.33 10^6/uL (4.0-5.20)
[2018-05-15 06:18] LABS: Hematocrit 33.8 % (36.0-46.0); Hemoglobin 10.5 g/dL (12.2-16.2); Mean Corpuscular Hemoglobin 24.3 pg (28.0-32.0); Mean Corpuscular Hgb Conc. 31.1 g/dL (32.0-36.0); Monocytes % (auto) 1.6 % (0.0-12.0); Neutrophils # (auto) 10.2 uL; Neutrophils % (auto) 91.9 % (37.0-80.0); Nucleated Red Blood Cells % 0.1 %; Platelet Count (auto) 212 10^3/uL (140-450); Red Cell Distribution Width 18.2 % (11.8-14.3); White Blood Cell 11.1 10^3/uL (4.4-10.8)
[2018-05-15 06:31] LABS: Albumin 2.6 g/dL (3.4-5.0); Calcium 8.8 mg/dL (8.5-10.1); Potassium 4.9 mmol/L (3.5-5.1)
[2018-05-15 06:37] LABS: BUN/Creatinine Ratio 16.3; Bilirubin, Total 0.6 mg/dL (0.2-1.0); Total Protein 8.4 g/dL (6.4-8.2)
[2018-05-15 08:00] VITALS: BP 144/82
[2018-05-15] MEDS: ASPirin 81 mg TAB PO SCH (09:15)
[2018-05-15] MEDS: GABAPENTIN 300 MG CAP PO SCH ×2 (09:15→21:25)
[2018-05-15] MEDS: FUROSEMIDE 40 MG TAB PO SCH (09:16)
[2018-05-15] MEDS: PANTOPRAZOLE 40 MG TAB PO SCH (09:16)
[2018-05-15] MEDS ORDERED: LISINOPRIL 20 MG TAB PO SCH (10:00)
[2018-05-15] MEDS ORDERED: LEVOFLOXACIN 250MG 50 ML IV SCH (10:00)
[2018-05-15 12:00] VITALS: BP 148/85
[2018-05-15] MEDS: HYDROcodone-ACET 5/325MG TAB PO PRN ×2 (13:49→21:26)
[2018-05-15 16:00] VITALS: BP 135/73
[2018-05-15] MEDS: IPRATROPIUM BROM 0.5 MG/2.5ML INH SOL NEB SCH (18:59)
[2018-05-15] MEDS: ALBUTEROL SULF 2.5 MG/0.5ML(0.5%) NEB SOLN NEB SCH (18:59)
[2018-05-15] MEDS: BUDESONIDE (INHALATION) 0.5 MG/2 ML NEB NEB SCH (18:59)
[2018-05-15] MEDS: ATORVASTATIN 20 MG TAB PO SCH (21:25)
[2018-05-15 22:00] VITALS: BP 118/66
[2018-05-16] MEDS: HYDROcodone-ACET 5/325MG TAB PO PRN ×3 (04:12→19:36)
[2018-05-16 05:04] VITALS: BP 132/75
[2018-05-16] MEDS: ACCU-CHEK COMFORT CURVE STRIP VI SCH ×4 (05:39→23:46)
[2018-05-16] MEDS: InsuLIN REG 1unit/0.01ml Soln (100units/ml) SC SCH ×4 (05:40→23:47)
[2018-05-16 05:49] LABS: Basophils # (auto) 0.1 uL; Eosinophils # (auto) 0 uL; Eosinophils % (auto) 0.3 % (0.0-7.0); Lymphocytes # (auto) 1.7 uL; Monocytes # (auto) 1.1 uL
[2018-05-16 05:51] LABS: Basophils % (auto) 0.5 % (0.0-2.0); Hematocrit 30.9 % (36.0-46.0); Hemoglobin 9.9 g/dL (12.2-16.2); Lymphocytes % (auto) 12.7 % (10.0-50.0); Mean Corpuscular Hgb Conc. 31.9 g/dL (32.0-36.0); Mean Corpuscular Volume 77.1 fL (80.0-100.0); Neutrophils # (auto) 10.4 uL; Neutrophils % (auto) 78.5 % (37.0-80.0); Platelet Count (auto) 208 10^3/uL (140-450); White Blood Cell 13.2 10^3/uL (4.4-10.8)
[2018-05-16] MEDS: ALBUTEROL SULF 2.5 MG/0.5ML(0.5%) NEB SOLN NEB SCH ×4 (05:55→18:19)
[2018-05-16] MEDS: IPRATROPIUM BROM 0.5 MG/2.5ML INH SOL NEB SCH ×4 (05:55→18:19)
[2018-05-16] MEDS: BUDESONIDE (INHALATION) 0.5 MG/2 ML NEB NEB SCH ×2 (05:55→18:19)
[2018-05-16 09:00] VITALS: BP 115/60
[2018-05-16] MEDS: ASPirin 81 mg TAB PO SCH (10:34)
[2018-05-16] MEDS: FUROSEMIDE 40 MG TAB PO SCH (10:34)
[2018-05-16] MEDS: GABAPENTIN 300 MG CAP PO SCH ×2 (10:34→21:30)
[2018-05-16] MEDS: PANTOPRAZOLE 40 MG TAB PO SCH (10:34)
[2018-05-16] MEDS: predniSONE 20 MG TAB PO SCH (10:34)
[2018-05-16] MEDS: VERAPAMIL HCL 40 MG TAB PO SCH (10:35)
[2018-05-16] MEDS: LEVOFLOXACIN 500 MG TAB PO SCH (10:35)
[2018-05-16 13:00] VITALS: BP 102/68
[2018-05-16 17:00] VITALS: BP 111/53
[2018-05-16] MEDS: ATORVASTATIN 20 MG TAB PO SCH (21:30)
[2018-05-16] MEDS: TEMAZEPAM 15 MG CAP PO PRN (21:34)
[2018-05-16 22:00] VITALS: BP 102/53
[2018-05-17] MEDS: ACCU-CHEK COMFORT CURVE STRIP VI SCH ×3 (05:53→18:07)
[2018-05-17 05:54] LABS: Basophils # (auto) 0 uL; Basophils % (auto) 0.5 % (0.0-2.0); Eosinophils # (auto) 0 uL; Eosinophils % (auto) 0.4 % (0.0-7.0); Hematocrit 32.5 % (36.0-46.0); Hemoglobin 10.4 g/dL (12.2-16.2); Lymphocytes # (auto) 1.3 uL; Mean Corpuscular Hemoglobin 24.8 pg (28.0-32.0); Mean Corpuscular Hgb Conc. 32.1 g/dL (32.0-36.0); Mean Corpuscular Volume 77.3 fL (80.0-100.0); Monocytes # (auto) 0.9 uL; Monocytes % (auto) 9.1 % (0.0-12.0); Neutrophils # (auto) 7.9 uL; Nucleated Red Blood Cells % 0.1 %; Platelet Count (auto) 217 10^3/uL (140-450); Red Cell Distribution Width 17.9 % (11.8-14.3); White Blood Cell 10.2 10^3/uL (4.4-10.8)
[2018-05-17] MEDS: InsuLIN REG 1unit/0.01ml Soln (100units/ml) SC SCH ×4 (05:54→18:21)
[2018-05-17 06:25] VITALS: BP 134/81
[2018-05-17] MEDS: ALBUTEROL SULF 2.5 MG/0.5ML(0.5%) NEB SOLN NEB SCH ×4 (06:47→18:46)
[2018-05-17] MEDS: IPRATROPIUM BROM 0.5 MG/2.5ML INH SOL NEB SCH ×4 (06:47→18:46)
[2018-05-17] MEDS: BUDESONIDE (INHALATION) 0.5 MG/2 ML NEB NEB SCH ×2 (06:48→18:56)
[2018-05-17] MEDS: HYDROcodone-ACET 5/325MG TAB PO PRN ×3 (08:57→21:33)
[2018-05-17 09:00] VITALS: BP 131/78
[2018-05-17] MEDS: GABAPENTIN 300 MG CAP PO SCH ×2 (10:40→21:32)
[2018-05-17] MEDS: FUROSEMIDE 40 MG TAB PO SCH (10:40)
[2018-05-17] MEDS: PANTOPRAZOLE 40 MG TAB PO SCH (10:41)
[2018-05-17] MEDS: predniSONE 20 MG TAB PO SCH (10:41)
[2018-05-17] MEDS: LEVOFLOXACIN 500 MG TAB PO SCH (10:41)
[2018-05-17] MEDS: ASPirin 81 mg TAB PO SCH (10:41)
[2018-05-17] MEDS: VERAPAMIL HCL 40 MG TAB PO SCH (10:42)
[2018-05-17 13:00] VITALS: BP 78/39
[2018-05-17 17:00] VITALS: BP 132/74
[2018-05-17 20:00] VITALS: BP 116/67
[2018-05-17] MEDS: TEMAZEPAM 15 MG CAP PO PRN (21:32)
[2018-05-17] MEDS: ATORVASTATIN 20 MG TAB PO SCH (21:32)
[2018-05-17 22:00] VITALS: BP 116/67
[2018-05-18] MEDS: InsuLIN REG 1unit/0.01ml Soln (100units/ml) SC SCH ×3 (01:02→11:57)
[2018-05-18] MEDS: ACCU-CHEK COMFORT CURVE STRIP VI SCH ×3 (01:03→11:57)
[2018-05-18 05:00] VITALS: BP_SYST 125; BP_SYST 143; BP_DIAS 66; BP_DIAS 88
[2018-05-18] MEDS: HYDROcodone-ACET 5/325MG TAB PO PRN ×2 (05:30→13:08)
[2018-05-18 05:56] LABS: Basophils # (auto) 0.1 uL; Basophils % (auto) 0.5 % (0.0-2.0); Eosinophils # (auto) 0.1 uL; Hematocrit 34.7 % (36.0-46.0); Hemoglobin 10.9 g/dL (12.2-16.2); Lymphocytes # (auto) 1.9 uL; Lymphocytes % (auto) 17.8 % (10.0-50.0); Mean Corpuscular Hemoglobin 24.5 pg (28.0-32.0); Mean Corpuscular Hgb Conc. 31.6 g/dL (32.0-36.0); Mean Corpuscular Volume 77.4 fL (80.0-100.0); Monocytes # (auto) 0.8 uL; Monocytes % (auto) 7.6 % (0.0-12.0); Neutrophils # (auto) 7.9 uL; Neutrophils % (auto) 73.1 % (37.0-80.0); Platelet Count (auto) 260 10^3/uL (140-450); Red Blood Cells 4.48 10^6/uL (4.0-5.20); Red Cell Distribution Width 17.9 % (11.8-14.3); White Blood Cell 10.8 10^3/uL (4.4-10.8)
[2018-05-18 06:21] LABS: Chloride 100 mmol/L (98-107); Potassium 4.5 mmol/L (3.5-5.1); Sodium 133 mmol/L (136-145)
[2018-05-18 06:29] LABS: Alanine Aminotransferase 15 U/L (13-56); Albumin 2.7 g/dL (3.4-5.0); Alkaline Phosphatase 77 U/L (45-117); Anion Gap 7 (5-15); Aspartate Aminotransferase 10 U/L (15-37); BUN/Creatinine Ratio 30.5; Bilirubin, Total 0.2 mg/dL (0.2-1.0); Blood Urea Nitrogen 50 mg/dL (7-18); Carbon Dioxide 26 mmol/L (21-32); Cholesterol 82 mg/dL (< 200); GFR African American 41 mL/min; GFR Non-African American 34 mL/min; Glucose 163 mg/dL (74-106); HDL Cholesterol 42 mg/dL (40-59); LDL Cholesterol 32 mg/dL (< 100); Magnesium 2.8 mg/dL (1.6-2.6); Total Protein 7.9 g/dL (6.4-8.2); Triglycerides 144 mg/dL (< 150)
[2018-05-18] MEDS: ALBUTEROL SULF 2.5 MG/0.5ML(0.5%) NEB SOLN NEB SCH ×3 (07:22→12:10)
[2018-05-18] MEDS: BUDESONIDE (INHALATION) 0.5 MG/2 ML NEB NEB SCH (07:22)
[2018-05-18] MEDS: IPRATROPIUM BROM 0.5 MG/2.5ML INH SOL NEB SCH ×3 (07:22→12:10)
[2018-05-18] MEDS: LEVOFLOXACIN 500 MG TAB PO SCH (08:52)
[2018-05-18] MEDS: PANTOPRAZOLE 40 MG TAB PO SCH (08:52)
[2018-05-18] MEDS: GABAPENTIN 300 MG CAP PO SCH (08:52)
[2018-05-18] MEDS: ASPirin 81 mg TAB PO SCH (08:53)
[2018-05-18] MEDS: predniSONE 20 MG TAB PO SCH (08:53)
[2018-05-18] MEDS: FUROSEMIDE 40 MG TAB PO SCH (08:54)
[2018-05-18] MEDS: VERAPAMIL HCL 40 MG TAB PO SCH (08:56)
[2018-05-18 09:00] VITALS: BP 125/91
[2018-05-18 13:00] VITALS: BP 130/62
[2018-05-18] MEDS ORDERED: ALB5IS NEB (13:24)
[2018-05-18] MEDS ORDERED: VER40T PO (13:24)
[2018-05-18] MEDS ORDERED: LEVO500T21 PO (13:24)
[2018-05-18] MEDS ORDERED: PANT40T PO (13:24)
[2018-05-18] MEDS ORDERED: GABA300C10 PO (13:24)
[2018-05-18] MEDS ORDERED: IPR002IS NEB (13:24)
[2018-05-18] MEDS ORDERED: METF-372 PO (13:24)
[2018-05-18 13:26] LABS: Alcohol, Urine < 3.0 mg/dL (0-5); Amphetamine Screen, Urine NEGATIVE (NEGATIVE); Barbiturate Scree,Urine NEGATIVE (NEGATIVE); Benzodiazephine Screen, Urine NEGATIVE (NEGATIVE); Cannabinoid Screen, Urine NEGATIVE (NEGATIVE); Cocaine Screen, Urine NEGATIVE (NEGATIVE); Opiate Scree,Urine NEGATIVE (NEGATIVE); Phencyclidine Screen, Urine NEGATIVE (NEGATIVE)
[2018-05-18] MEDS ORDERED: PRE1T PO (14:55)
[2018-05-18] MEDS ORDERED: BUDE0.5S IN (14:55)
== END 2018-05-18 17:08 | disposition home or self-care (01) | DRG 871 ==
LOC: EDBD 16:23 → ER 16:23 → TELE 16:24 → TELE-WESTW 22:37
PROVIDERS: ADMIT Nurse Practitioner; ATTEND Family Medicine
PROC: 5A09357 Assistance with Respiratory Ventilation, Less than 24 Consecutive Hours, Continuous Positive Airway Pressure (ICD-10-PCS; principal; 2018-05-18)
DX: A41.9 Sepsis, unspecified organism (principal); J96.20 Acute and chronic respiratory failure, unspecified whether with hypoxia or hypercapnia; J44.1 Chronic obstructive pulmonary disease with (acute) exacerbation; N39.0 Urinary tract infection, site not specified; I13.0 Hypertensive heart and chronic kidney disease with heart failure and stage 1 through stage 4 chronic kidney disease, or unspecified chronic kidney disease; J44.0 Chronic obstructive pulmonary disease with (acute) lower respiratory infection; I50.32 Chronic diastolic (congestive) heart failure; D64.9 Anemia, unspecified; J20.9 Acute bronchitis, unspecified; E11.21 Type 2 diabetes mellitus with diabetic nephropathy; E66.01 Morbid (severe) obesity due to excess calories; F12.90 Cannabis use, unspecified, uncomplicated; F17.210 Nicotine dependence, cigarettes, uncomplicated; G47.33 Obstructive sleep apnea (adult) (pediatric); I25.10 Atherosclerotic heart disease of native coronary artery without angina pectoris; E78.5 Hyperlipidemia, unspecified; E11.40 Type 2 diabetes mellitus with diabetic neuropathy, unspecified; E11.22 Type 2 diabetes mellitus with diabetic chronic kidney disease; F15.90 Other stimulant use, unspecified, uncomplicated; N18.3 Chronic kidney disease, stage 3 (moderate); Z80.1 Family history of malignant neoplasm of trachea, bronchus and lung; Z80.3 Family history of malignant neoplasm of breast; Z80.41 Family history of malignant neoplasm of ovary; Z80.8 Family history of malignant neoplasm of other organs or systems; Z81.8 Family history of other mental and behavioral disorders; Z88.0 Allergy status to penicillin; Z82.0 Family history of epilepsy and other diseases of the nervous system; Z82.49 Family history of ischemic heart disease and other diseases of the circulatory system; Z82.3 Family history of stroke; Z82.5 Family history of asthma and other chronic lower respiratory diseases; Z83.3 Family history of diabetes mellitus; Z82.62 Family history of osteoporosis; Z99.81 Dependence on supplemental oxygen
CPT/HCPCS: 36415; 71045; 80053; 80061; 80307; 81001; 82962; 83036; 83605; 83735; 84484; 85025; 85610; 85730; 87040; 87081; 87086; 87804; 93005; 94640; 94660; 94761; 96365; 96375; 97163; G0378; J1815

== ENCOUNTER 2019-02-25 12:13 | Inpatient (IN) | payer OTHER, MEDICAID ==
[~2019-02-25] VITALS: Ht 157.5 cm; Wt 131.0 kg
[~2019-02-25 12:13] MED LIST changes: +ALB5IS NEB; +ATOR20TA PO; +BUDE0.5S IN; -DOXY-216 PO; -INSDRIP SUBCUT; +IPR002IS NEB; -LEVO-28 PO; -LISI-646 PO; +PANT40T PO; -POTA10TA79 PO; +PRE1T PO; +VER40T PO
[2019-02-25] MEDS ORDERED: DILTIAZEM HCL 25 MG/5 ML VIAL IV ONE ×3 (12:55→13:15)
[2019-02-25] MEDS ORDERED: MORPHINE SULF INJ 2 MG/ML SYRINGE 1ML IV ONE (13:00)
[2019-02-25] MEDS ORDERED: SODIUM CHLORIDE 0.9% 500 ML IV ONE (13:00)
[2019-02-25] MEDS ORDERED: ONDANSETRON HCL 4 MG/2 ML VIAL IV ONE (13:00)
[2019-02-25] MEDS ORDERED: ASPirin 81 mg TAB PO ONE (13:15)
[2019-02-25] MEDS ORDERED: AMIODARONE HCL 900 MG in DEXTROSE 500 ML IV SCH (13:26)
[2019-02-25 13:27] LABS: Basophils # (auto) 0.1 uL; Eosinophils # (auto) 0.2 uL; Hemoglobin 12.4 g/dL (12.2-16.2); Neutrophils # (auto) 9.5 uL
[2019-02-25 13:28] LABS: Basophils % (auto) 0.4 % (0.0-2.0); Eosinophils % (auto) 1.9 % (0.0-7.0); Hematocrit 39.7 % (36.0-46.0); Lymphocytes # (auto) 2.7 uL; Mean Corpuscular Hemoglobin 24.9 pg (28.0-32.0); Mean Corpuscular Hgb Conc. 31.2 g/dL (32.0-36.0); Mean Corpuscular Volume 79.7 fL (80.0-100.0); Monocytes # (auto) 0.8 uL; Monocytes % (auto) 6.3 % (0.0-12.0); Neutrophils % (auto) 71.4 % (37.0-80.0); Platelet Count (auto) 124 10^3/uL (140-450); Red Blood Cells 4.98 10^6/uL (4.0-5.20); White Blood Cell 13.4 10^3/uL (4.4-10.8)
[2019-02-25] MEDS ORDERED: AMIODARONE HCL 150 MG in D5W 5% 100 ML IV ONE (13:30)
[2019-02-25 13:32] LABS: Albumin 3.2 g/dL (3.4-5.0); Calcium 8.6 mg/dL (8.5-10.1); Magnesium 3.1 mg/dL (1.6-2.6); Potassium 4.8 mmol/L (3.5-5.1)
[2019-02-25 13:38] LABS: BUN/Creatinine Ratio 33.3; Bilirubin, Total 0.9 mg/dL (0.2-1.0); Total Protein 6.8 g/dL (6.4-8.2)
[2019-02-25 13:43] LABS: Red Cell Distribution Width 22.2 % (11.8-14.3)
[2019-02-25 14:05] LABS: INR 1.03 (0.9-1.15); Partial Thromboplastin Time 23.5 sec (23.64-32.05)
[2019-02-25] MEDS ORDERED: DEXTROSE (50%) 50ML SYRG IV PRN (16:30)
[2019-02-25] MEDS ORDERED: SODIUM BICARBONATE 50ML VIAL 50 ML in SOD CHL 0.45% 1,000 ML IV ONE (16:30)
[2019-02-25] MEDS ORDERED: MORPHINE SULF INJ 2 MG/ML SYRINGE 1ML IV PRN (16:30)
[2019-02-25] MEDS ORDERED: ACETAMINOPHEN 500 MG TAB PO PRN (16:30)
[2019-02-25] MEDS ORDERED: ONDANSETRON HCL 4 MG/2 ML VIAL IV PRN (16:30)
[2019-02-25] MEDS ORDERED: NITROGLYCERIN 0.4 MG SL TAB SL PRN (16:30)
[2019-02-25] MEDS ORDERED: methylPREDNISolone SOD SUCC 125 MG/2 ML VL IV ONE (16:30)
[2019-02-25] MEDS ORDERED: cefTRIAXone 1GM/50ML D5W 50 ML IV SCH (17:00)
[2019-02-25 17:05] LABS: Urine Bacteria FEW /hpf (None Seen); Urine Blood 1+ /uL (Negative); Urine Hyaline Cast MOD /lpf (0 - 2); Urine Mucus FEW (None Seen); Urine Specific Gravity 1.017 (1.001-1.035); Urine WBC 23 /hpf (0 - 5)
[2019-02-25] MEDS: LEVALBUTEROL HCL 1.25 MG/3 ML NEB NEB SCH (18:00)
[2019-02-25] MEDS: IPRATROPIUM BROM 0.5 MG/2.5ML INH SOL NEB SCH (18:00)
[2019-02-25] MEDS ORDERED: METOPROLOL SUCCINATE XL 50 MG TAB PO ONE (18:42)
[2019-02-25] MEDS: HYDROcodone-ACET 5/325MG TAB PO PRN (18:43)
[2019-02-25] MEDS: CLINDAMYCIN 300MG IV 50 ML IV SCH (18:43)
[2019-02-25] MEDS: ACCU-CHEK COMFORT CURVE STRIP VI SCH (18:47)
[2019-02-25] MEDS: InsuLIN REG 1unit/0.01ml Soln (100units/ml) SC SCH (18:49)
[2019-02-25] MEDS: METOPROLOL SUCCINATE XL 50 MG TAB PO ONE ×2 (18:53→20:14)
[2019-02-25] MEDS: AMIODARONE HCL 900 MG in DEXTROSE 500 ML IV SCH (20:30)
[2019-02-25] MEDS: BUDESONIDE (INHALATION) 0.5 MG/2 ML NEB NEB SCH (21:37)
[2019-02-25] MEDS: METOPROLOL SUCCINATE XL 50 MG TAB PO SCH (22:39)
[2019-02-25] MEDS: ATORVASTATIN 20 MG TAB PO SCH (22:39)
[2019-02-26] MEDS: IPRATROPIUM BROM 0.5 MG/2.5ML INH SOL NEB SCH ×4 (00:23→18:57)
[2019-02-26] MEDS: ACCU-CHEK COMFORT CURVE STRIP VI SCH ×4 (00:26→18:31)
[2019-02-26] MEDS: InsuLIN REG 1unit/0.01ml Soln (100units/ml) SC SCH ×4 (00:28→18:31)
[2019-02-26 00:38] VITALS: BP 114/91
[2019-02-26 02:08] VITALS: BP 105/57
[2019-02-26] MEDS: CLINDAMYCIN 300MG IV 50 ML IV SCH ×3 (02:16→18:31)
[2019-02-26 04:03] LABS: Basophils # (auto) 0 uL; Basophils % (auto) 0.2 % (0.0-2.0); Eosinophils # (auto) 0 uL; Eosinophils % (auto) 0.1 % (0.0-7.0); Mean Corpuscular Volume 80.2 fL (80.0-100.0); Monocytes # (auto) 0.3 uL; Neutrophils # (auto) 9.1 uL; White Blood Cell 10.1 10^3/uL (4.4-10.8)
[2019-02-26 04:05] LABS: Hematocrit 40.8 % (36.0-46.0); Hemoglobin 13.2 g/dL (12.2-16.2); Lymphocytes # (auto) 0.6 uL; Lymphocytes % (auto) 6.1 % (10.0-50.0); Mean Corpuscular Hemoglobin 25.8 pg (28.0-32.0); Mean Corpuscular Hgb Conc. 32.2 g/dL (32.0-36.0); Monocytes % (auto) 3.2 % (0.0-12.0); Neutrophils % (auto) 90.4 % (37.0-80.0); Nucleated Red Blood Cells % 1.7 %; Platelet Count (auto) 122 10^3/uL (140-450); Red Blood Cells 5.09 10^6/uL (4.0-5.20)
[2019-02-26 04:10] VITALS: BP 124/81
[2019-02-26 04:11] LABS: Red Cell Distribution Width 20.7 % (11.8-14.3)
[2019-02-26 04:25] LABS: Albumin 3.2 g/dL (3.4-5.0); Calcium 8.4 mg/dL (8.5-10.1)
[2019-02-26 04:35] LABS: Bilirubin, Total 1.6 mg/dL (0.2-1.0); Total Protein 6.8 g/dL (6.4-8.2)
[2019-02-26] MEDS ORDERED: SODIUM BICARBONATE 8.4% INJ 50ML SYRINGE IV ONE (05:15)
[2019-02-26] MEDS ORDERED: CALCIUM GLUC 4.65meq/50ml D5AE 50 ML IV ONE (05:15)
[2019-02-26] MEDS ORDERED: SODIUM ZIRCONIUM CYCL 10 GM PAK PO ONE (05:15)
[2019-02-26] MEDS ORDERED: InsuLIN REG 1unit/0.01ml Soln (100units/ml) IV ONE (05:15)
[2019-02-26] MEDS ORDERED: DEXTROSE (50%) 50ML SYRG IV ONE (05:15)
[2019-02-26] MEDS: BUDESONIDE (INHALATION) 0.5 MG/2 ML NEB NEB SCH ×2 (05:56→18:56)
[2019-02-26] MEDS: LEVALBUTEROL HCL 1.25 MG/3 ML NEB NEB SCH ×3 (05:56→18:00)
[2019-02-26] MEDS ORDERED: DILTIAZEM HCL 120MG ER CAP PO SCH (10:00)
[2019-02-26] MEDS ORDERED: LISINOPRIL 10 MG TAB PO SCH (10:00)
[2019-02-26] MEDS: FAMOTIDINE 20 MG TAB PO SCH (10:16)
[2019-02-26] MEDS: ASPirin-EC 81 mg tab PO SCH (10:17)
[2019-02-26 10:23] VITALS: BP 110/95
[2019-02-26] MEDS: METOPROLOL SUCCINATE XL 50 MG TAB PO SCH (10:38)
[2019-02-26] MEDS: AMIODARONE HCL 900 MG in DEXTROSE 500 ML IV SCH (10:45)
[2019-02-26] MEDS ORDERED: LEVOFLOXACIN 250MG 50 ML IV ONE (12:15)
[2019-02-26] MEDS: SODIUM BICARBONATE 50ML VIAL 50 ML in SOD CHL 0.45% 1,000 ML IV SCH ×2 (16:28→22:28)
[2019-02-26] MEDS ORDERED: LIDOCAINE 2% JELLY 11ml (GLYDO) UR ONE (16:30)
[2019-02-26] MEDS ORDERED: LIDOCAINE 2% JELLY 11ml (GLYDO) ONE (16:32)
[2019-02-26] MEDS: MORPHINE SULF INJ 2 MG/ML SYRINGE 1ML IV PRN ×2 (16:54→21:46)
[2019-02-26] MEDS ORDERED: FUROSEMIDE 100 MG/10ML VIAL IV SCH (18:00)
[2019-02-26] MEDS: ATORVASTATIN 20 MG TAB PO SCH (22:41)
[2019-02-26] MEDS: METOPROLOL TARTRATE 25 MG TAB PO SCH (22:45)
[2019-02-27] MEDS: LEVALBUTEROL HCL 1.25 MG/3 ML NEB NEB SCH ×4 (00:06→18:26)
[2019-02-27] MEDS: IPRATROPIUM BROM 0.5 MG/2.5ML INH SOL NEB SCH ×4 (00:06→18:26)
[2019-02-27] MEDS: ACCU-CHEK COMFORT CURVE STRIP VI SCH ×4 (00:12→18:02)
[2019-02-27] MEDS: InsuLIN REG 1unit/0.01ml Soln (100units/ml) SC SCH ×4 (00:16→18:01)
[2019-02-27] MEDS: METOPROLOL TARTRATE 25 MG TAB PO SCH ×2 (00:16→22:00)
[2019-02-27] MEDS: CLINDAMYCIN 300MG IV 50 ML IV SCH ×3 (02:20→18:01)
[2019-02-27] MEDS: MORPHINE SULF INJ 2 MG/ML SYRINGE 1ML IV PRN ×3 (02:50→16:46)
[2019-02-27 05:48] LABS: Albumin 3.1 g/dL (3.4-5.0); BUN/Creatinine Ratio 27.9; Calcium 7.9 mg/dL (8.5-10.1); Potassium 4.8 mmol/L (3.5-5.1)
[2019-02-27 05:56] LABS: Bilirubin, Total 1.2 mg/dL (0.2-1.0); Total Protein 5.7 g/dL (6.4-8.2)
[2019-02-27] MEDS: BUDESONIDE (INHALATION) 0.5 MG/2 ML NEB NEB SCH ×2 (06:03→18:25)
[2019-02-27 06:28] LABS: Phosphorus 8.2 mg/dL (2.5-4.90)
[2019-02-27 06:29] LABS: Uric Acid 25.3 mg/dL (2.6-6.0)
[2019-02-27 08:01] LABS: Protein, Urine 57.1 mg/dL (0.0-11.9)
[2019-02-27 09:32] LABS: Potassium 6.2 mmol/L (3.5-5.1)
[2019-02-27] MEDS ORDERED: FUROSEMIDE 100 MG/10ML VIAL IV SCH (10:00)
[2019-02-27 10:05] VITALS: BP 124/77
[2019-02-27] MEDS: FAMOTIDINE 20 MG TAB PO SCH (10:50)
[2019-02-27] MEDS: LEVOFLOXACIN 250MG 50 ML IV SCH (10:50)
[2019-02-27] MEDS: AMIODARONE HCL 200 MG TAB PO SCH ×2 (10:50→23:27)
[2019-02-27] MEDS: SEVELAMER 800 MG TAB PO SCH ×2 (11:55→18:00)
[2019-02-27 13:00] VITALS: BP 113/46
[2019-02-27] MEDS: SODIUM BICARBONATE 50ML VIAL 50 ML in SOD CHL 0.45% 1,000 ML IV SCH ×2 (13:03→23:53)
[2019-02-27] MEDS: ASPirin-EC 81 mg tab PO SCH (13:03)
[2019-02-27] MEDS: BUMETANIDE 2.5mg/10ml (0.25 mg/ml) INJ IV SCH (13:03)
[2019-02-27] MEDS: PANTOPRAZOLE 40 MG TAB PO SCH (16:46)
[2019-02-27 16:55] VITALS: BP 122/92
[2019-02-27] MEDS ORDERED: FUROSEMIDE 20 MG/2 ML VIAL IV SCH (18:00)
[2019-02-27 22:00] VITALS: BP 94/45
[2019-02-27] MEDS: ATORVASTATIN 20 MG TAB PO SCH (23:27)
[2019-02-28] MEDS: ACCU-CHEK COMFORT CURVE STRIP VI SCH ×5 (00:57→23:56)
[2019-02-28] MEDS: InsuLIN REG 1unit/0.01ml Soln (100units/ml) SC SCH ×4 (00:58→18:00)
[2019-02-28] MEDS: CLINDAMYCIN 300MG IV 50 ML IV SCH ×3 (02:00→17:45)
[2019-02-28 05:00] VITALS: BP 121/68
[2019-02-28] MEDS: MORPHINE SULF INJ 2 MG/ML SYRINGE 1ML IV PRN ×2 (06:03→21:49)
[2019-02-28] MEDS: BUDESONIDE (INHALATION) 0.5 MG/2 ML NEB NEB SCH ×2 (06:08→18:25)
[2019-02-28] MEDS: IPRATROPIUM BROM 0.5 MG/2.5ML INH SOL NEB SCH ×3 (06:08→18:26)
[2019-02-28] MEDS: LEVALBUTEROL HCL 1.25 MG/3 ML NEB NEB SCH ×3 (06:08→18:26)
[2019-02-28 08:00] VITALS: BP 94/45
[2019-02-28] MEDS: LEVOFLOXACIN 250MG 50 ML IV SCH (08:28)
[2019-02-28] MEDS: BUMETANIDE 2.5mg/10ml (0.25 mg/ml) INJ IV SCH (08:32)
[2019-02-28] MEDS: ASPirin-EC 81 mg tab PO SCH (08:33)
[2019-02-28] MEDS: SEVELAMER 800 MG TAB PO SCH ×3 (08:33→18:50)
[2019-02-28] MEDS: METOPROLOL TARTRATE 25 MG TAB PO SCH ×2 (08:34→21:51)
[2019-02-28] MEDS: PANTOPRAZOLE 40 MG TAB PO SCH (08:34)
[2019-02-28] MEDS: AMIODARONE HCL 200 MG TAB PO SCH ×2 (08:34→21:52)
[2019-02-28 09:00] VITALS: BP 126/59
[2019-02-28 10:14] LABS: Calcium 7.9 mg/dL (8.5-10.1); Potassium 4.1 mmol/L (3.5-5.1)
[2019-02-28] MEDS: SUCRALFATE 1 GM/10 ML ORAL SUSP PO SCH ×3 (12:00→21:52)
[2019-02-28 12:52] LABS: Uric Acid 25.7 mg/dL (2.6-6.0)
[2019-02-28 13:00] VITALS: BP 107/63
[2019-02-28] MEDS: SODIUM BICARBONATE 50ML VIAL 50 ML in SOD CHL 0.45% 1,000 ML IV SCH ×2 (13:01→23:43)
[2019-02-28] MEDS: HYDROcodone-ACET 5/325MG TAB PO PRN (16:30)
[2019-02-28 17:00] VITALS: BP 110/64
[2019-02-28] MEDS: ATORVASTATIN 20 MG TAB PO SCH (21:53)
[2019-02-28 22:00] VITALS: BP 124/65
[2019-03-01] VITALS (7 sets, daily range): BP systolic 119–144; BP diastolic 67–85
[2019-03-01] MEDS: InsuLIN REG 1unit/0.01ml Soln (100units/ml) SC SCH ×5 (00:06→23:56)
[2019-03-01] MEDS: CLINDAMYCIN 300MG IV 50 ML IV SCH ×3 (02:49→18:04)
[2019-03-01] MEDS: HYDROcodone-ACET 5/325MG TAB PO PRN ×3 (04:37→21:04)
[2019-03-01] MEDS: ACCU-CHEK COMFORT CURVE STRIP VI SCH ×4 (06:00→23:55)
[2019-03-01 06:26] LABS: Albumin 2.5 g/dL (3.4-5.0); Calcium 7.9 mg/dL (8.5-10.1); Potassium 3.9 mmol/L (3.5-5.1)
[2019-03-01 06:35] LABS: BUN/Creatinine Ratio 36.3; Bilirubin, Total 0.7 mg/dL (0.2-1.0); Total Protein 5.4 g/dL (6.4-8.2)
[2019-03-01] MEDS: IPRATROPIUM BROM 0.5 MG/2.5ML INH SOL NEB SCH ×3 (06:37→18:09)
[2019-03-01] MEDS: LEVALBUTEROL HCL 1.25 MG/3 ML NEB NEB SCH ×3 (06:37→18:09)
[2019-03-01] MEDS: BUDESONIDE (INHALATION) 0.5 MG/2 ML NEB NEB SCH ×2 (06:37→18:09)
[2019-03-01] MEDS: SUCRALFATE 1 GM/10 ML ORAL SUSP PO SCH ×4 (07:02→22:37)
[2019-03-01] MEDS: BUMETANIDE 2.5mg/10ml (0.25 mg/ml) INJ IV SCH (09:37)
[2019-03-01] MEDS: SEVELAMER 800 MG TAB PO SCH ×3 (09:37→18:58)
[2019-03-01] MEDS: AMIODARONE HCL 200 MG TAB PO SCH ×2 (09:37→22:37)
[2019-03-01] MEDS: METOPROLOL TARTRATE 25 MG TAB PO SCH ×2 (09:38→22:38)
[2019-03-01] MEDS: PANTOPRAZOLE 40 MG TAB PO SCH (09:38)
[2019-03-01] MEDS: LEVOFLOXACIN 250MG 50 ML IV SCH (09:39)
[2019-03-01] MEDS: ASPirin-EC 81 mg tab PO SCH (09:40)
[2019-03-01] MEDS: SODIUM BICARBONATE 50ML VIAL 50 ML in SOD CHL 0.45% 1,000 ML IV SCH ×2 (15:17→23:56)
[2019-03-01] MEDS: ATORVASTATIN 20 MG TAB PO SCH (22:37)
[2019-03-02] MEDS: CLINDAMYCIN 300MG IV 50 ML IV SCH ×2 (02:11→08:17)
[2019-03-02] MEDS: HYDROcodone-ACET 5/325MG TAB PO PRN ×2 (04:34→14:11)
[2019-03-02 05:00] VITALS: BP 112/76
[2019-03-02] MEDS: InsuLIN REG 1unit/0.01ml Soln (100units/ml) SC SCH ×4 (06:00→23:45)
[2019-03-02 06:17] LABS: Basophils # (auto) 0 uL; Eosinophils # (auto) 0.2 uL; Hemoglobin 11.2 g/dL (12.2-16.2); Lymphocytes # (auto) 0.6 uL; White Blood Cell 4.6 10^3/uL (4.4-10.8)
[2019-03-02 06:19] LABS: Basophils % (auto) 0.6 % (0.0-2.0); Eosinophils % (auto) 3.9 % (0.0-7.0); Hematocrit 34.6 % (36.0-46.0); Lymphocytes % (auto) 13.3 % (10.0-50.0); Mean Corpuscular Hemoglobin 25.7 pg (28.0-32.0); Mean Corpuscular Hgb Conc. 32.2 g/dL (32.0-36.0); Mean Corpuscular Volume 79.6 fL (80.0-100.0); Monocytes # (auto) 0.4 uL; Monocytes % (auto) 7.8 % (0.0-12.0); Neutrophils # (auto) 3.4 uL; Neutrophils % (auto) 74.4 % (37.0-80.0); Nucleated Red Blood Cells % 0.3 %; Platelet Count (auto) 78 10^3/uL (140-450); Red Blood Cells 4.35 10^6/uL (4.0-5.20)
[2019-03-02 06:22] LABS: Red Cell Distribution Width 23.3 % (11.8-14.3)
[2019-03-02] MEDS: ACCU-CHEK COMFORT CURVE STRIP VI SCH ×4 (06:23→23:45)
[2019-03-02] MEDS: SUCRALFATE 1 GM/10 ML ORAL SUSP PO SCH (06:24)
[2019-03-02 06:28] LABS: INR 1.01 (0.9-1.15)
[2019-03-02 06:36] LABS: Albumin 2.5 g/dL (3.4-5.0); Calcium 8.2 mg/dL (8.5-10.1); Potassium 4.1 mmol/L (3.5-5.1)
[2019-03-02 06:40] LABS: BUN/Creatinine Ratio 40.6; Bilirubin, Total 0.7 mg/dL (0.2-1.0); Total Protein 5.6 g/dL (6.4-8.2)
[2019-03-02] MEDS: LEVALBUTEROL HCL 1.25 MG/3 ML NEB NEB SCH ×3 (07:07→18:32)
[2019-03-02] MEDS: BUDESONIDE (INHALATION) 0.5 MG/2 ML NEB NEB SCH ×2 (07:07→18:32)
[2019-03-02] MEDS: IPRATROPIUM BROM 0.5 MG/2.5ML INH SOL NEB SCH ×3 (07:07→18:32)
[2019-03-02 08:00] VITALS: BP 129/79
[2019-03-02] MEDS: SEVELAMER 800 MG TAB PO SCH ×3 (08:16→18:19)
[2019-03-02] MEDS: LEVOFLOXACIN 250MG 50 ML IV SCH (08:17)
[2019-03-02] MEDS: ASPirin-EC 81 mg tab PO SCH (08:17)
[2019-03-02] MEDS: PANTOPRAZOLE 40 MG TAB PO SCH (08:18)
[2019-03-02] MEDS: METOPROLOL TARTRATE 25 MG TAB PO SCH ×2 (08:18→22:00)
[2019-03-02] MEDS ORDERED: LIDOCAINE VISCOUS 2% 15ML UD ONE (08:26)
[2019-03-02] MEDS ORDERED: diphenhdrAMINE HCL 50 MG/1 ML VL ONE (08:26)
[2019-03-02] MEDS ORDERED: MIDAZOLAM HCL 5 MG/ML-1ML VIAL ONE (08:26)
[2019-03-02] MEDS ORDERED: fentaNYL CITRATE 100 MCG/2 ML VL ONE (08:26)
[2019-03-02] MEDS ORDERED: SODIUM CHLORIDE LOCK 10 ML ONE (08:26)
[2019-03-02 09:00] VITALS: BP 129/79
[2019-03-02] MEDS: BUMETANIDE 2.5mg/10ml (0.25 mg/ml) INJ IV SCH (10:00)
[2019-03-02 10:44] LABS: Hepatitis B Surface Antibody Negative
[2019-03-02] MEDS ORDERED: MIDAZOLAM HCL 1MG/1ML-2 ML VIAL ONE (10:52)
[2019-03-02] MEDS ORDERED: PROPOFOL 10 MG/ML 20 ML IV ONE (10:55)
[2019-03-02] MEDS ORDERED: ONDANSETRON HCL 4 MG/2 ML VIAL IV PRN (11:00)
[2019-03-02] MEDS ORDERED: NALOXONE HCL 0.4 MG/ML VIAL IV PRN (11:00)
[2019-03-02] MEDS ORDERED: HYDROmorphone HCL 2 MG/ML VL IV PRN (11:00)
[2019-03-02 11:12] LABS: Hepatitis A Total Antibody Negative
[2019-03-02 13:00] VITALS: BP 128/68
[2019-03-02 13:53] LABS: Hepatitis C Antibody Negative (Negative)
[2019-03-02 13:54] LABS: Hepatitis B Core Total AB Negative; Hepatitis B Surface Antigen Negative (Negative)
[2019-03-02] MEDS ORDERED: MEROPENEM 1GM IVPB 100 ML IV ONE (14:00)
[2019-03-02 17:00] VITALS: BP 136/85
[2019-03-02] MEDS: SODIUM BICARBONATE 50ML VIAL 50 ML in SOD CHL 0.45% 1,000 ML IV SCH (20:00)
[2019-03-02] MEDS: DAKINS HALF STR 0.25% (NaHypochlorite) 473 ML TOPICAL SOL TOP SCH (22:51)
[2019-03-02] MEDS: ATORVASTATIN 20 MG TAB PO SCH (22:51)
[2019-03-02] MEDS: MEROPENEM 1GM IVPB 100 ML IV SCH (22:52)
[2019-03-02 23:10] VITALS: BP 137/76
[2019-03-03] MEDS: HYDROcodone-ACET 5/325MG TAB PO PRN ×3 (00:41→17:15)
[2019-03-03 05:21] VITALS: BP 142/87
[2019-03-03] MEDS: InsuLIN REG 1unit/0.01ml Soln (100units/ml) SC SCH ×4 (06:00→23:28)
[2019-03-03] MEDS: ACCU-CHEK COMFORT CURVE STRIP VI SCH ×4 (06:11→23:27)
[2019-03-03] MEDS: IPRATROPIUM BROM 0.5 MG/2.5ML INH SOL NEB SCH ×3 (06:14→18:20)
[2019-03-03] MEDS: BUDESONIDE (INHALATION) 0.5 MG/2 ML NEB NEB SCH ×2 (06:14→22:11)
[2019-03-03] MEDS: LEVALBUTEROL HCL 1.25 MG/3 ML NEB NEB SCH ×3 (06:14→18:20)
[2019-03-03 07:36] LABS: Calcium 8.5 mg/dL (8.5-10.1); Potassium 4.3 mmol/L (3.5-5.1)
[2019-03-03 07:38] LABS: BUN/Creatinine Ratio 35.1
[2019-03-03] MEDS: SEVELAMER 800 MG TAB PO SCH ×3 (08:00→18:10)
[2019-03-03 09:00] VITALS: BP 159/93
[2019-03-03] MEDS: MEROPENEM 1GM IVPB 100 ML IV SCH ×2 (09:42→21:21)
[2019-03-03] MEDS: PANTOPRAZOLE 40 MG TAB PO SCH (09:43)
[2019-03-03] MEDS: ASPirin-EC 81 mg tab PO SCH (09:43)
[2019-03-03] MEDS: METOPROLOL TARTRATE 25 MG TAB PO SCH ×2 (09:45→21:14)
[2019-03-03] MEDS: BUMETANIDE 2.5mg/10ml (0.25 mg/ml) INJ IV SCH (09:46)
[2019-03-03] MEDS: DAKINS HALF STR 0.25% (NaHypochlorite) 473 ML TOPICAL SOL TOP SCH ×2 (17:41→21:21)
[2019-03-03] MEDS: ATORVASTATIN 20 MG TAB PO SCH (21:13)
[2019-03-03 21:53] VITALS: BP 141/77
[2019-03-04] MEDS: MORPHINE SULF INJ 2 MG/ML SYRINGE 1ML IV PRN (02:07)
[2019-03-04 04:48] VITALS: BP 153/80
[2019-03-04] MEDS: ACCU-CHEK COMFORT CURVE STRIP VI SCH ×2 (05:55→11:55)
[2019-03-04] MEDS: InsuLIN REG 1unit/0.01ml Soln (100units/ml) SC SCH ×2 (06:04→12:00)
[2019-03-04] MEDS: LEVALBUTEROL HCL 1.25 MG/3 ML NEB NEB SCH ×2 (06:13→11:57)
[2019-03-04] MEDS: IPRATROPIUM BROM 0.5 MG/2.5ML INH SOL NEB SCH ×2 (06:13→11:57)
[2019-03-04] MEDS: BUDESONIDE (INHALATION) 0.5 MG/2 ML NEB NEB SCH (06:14)
[2019-03-04 08:17] LABS: Potassium 4.7 mmol/L (3.5-5.1)
[2019-03-04 08:27] LABS: BUN/Creatinine Ratio 33.6; Calcium 8.7 mg/dL (8.5-10.1)
[2019-03-04 08:58] VITALS: BP 159/87
[2019-03-04 09:08] VITALS: BP 159/87
[2019-03-04] MEDS: SEVELAMER 800 MG TAB PO SCH ×2 (09:46→12:00)
[2019-03-04] MEDS: MEROPENEM 1GM IVPB 100 ML IV SCH (09:47)
[2019-03-04] MEDS: PANTOPRAZOLE 40 MG TAB PO SCH (09:48)
[2019-03-04] MEDS: ASPirin-EC 81 mg tab PO SCH (09:48)
[2019-03-04] MEDS: METOPROLOL TARTRATE 25 MG TAB PO SCH (09:48)
[2019-03-04] MEDS ORDERED: amLODIPine BESYLATE 5 MG TAB PO SCH (10:00)
[2019-03-04] MEDS ORDERED: BUMETANIDE 1 MG TAB PO SCH (10:00)
[2019-03-04] MEDS: HYDROcodone-ACET 5/325MG TAB PO PRN (10:03)
[2019-03-04] MEDS: DAKINS HALF STR 0.25% (NaHypochlorite) 473 ML TOPICAL SOL TOP SCH (10:03)
[2019-03-04 13:00] VITALS: BP 158/83
[2019-03-04 16:56] VITALS: BP 162/70
[2019-03-09] MEDS ORDERED: PRE5T PO (12:02)
[2019-03-09] MEDS ORDERED: POTA-180 PO (12:03)
== END 2019-03-04 17:05 | disposition home health service (06) | DRG 871 ==
LOC: ER 12:15 → TELE 12:16 → TELE-EAST 02-27 09:50
PROVIDERS: ADMIT Nurse Practitioner Acute Care; ATTEND Family Medicine
PROC: 5A09357 Assistance with Respiratory Ventilation, Less than 24 Consecutive Hours, Continuous Positive Airway Pressure (ICD-10-PCS; 2019-02-26)
PROC: 5A09357 Assistance with Respiratory Ventilation, Less than 24 Consecutive Hours, Continuous Positive Airway Pressure (ICD-10-PCS; 2019-02-27)
PROC: 5A09357 Assistance with Respiratory Ventilation, Less than 24 Consecutive Hours, Continuous Positive Airway Pressure (ICD-10-PCS; 2019-02-28)
PROC: 5A09357 Assistance with Respiratory Ventilation, Less than 24 Consecutive Hours, Continuous Positive Airway Pressure (ICD-10-PCS; 2019-03-01)
PROC: 5A09357 Assistance with Respiratory Ventilation, Less than 24 Consecutive Hours, Continuous Positive Airway Pressure (ICD-10-PCS; 2019-03-02)
PROC: 0DJ08ZZ Inspection of Upper Intestinal Tract, Via Natural or Artificial Opening Endoscopic (ICD-10-PCS; principal; 2019-03-02 10:45)
PROC: 5A09357 Assistance with Respiratory Ventilation, Less than 24 Consecutive Hours, Continuous Positive Airway Pressure (ICD-10-PCS; 2019-03-03)
PROC: 5A09357 Assistance with Respiratory Ventilation, Less than 24 Consecutive Hours, Continuous Positive Airway Pressure (ICD-10-PCS; 2019-03-04)
DX: A41.9 Sepsis, unspecified organism (principal); J96.20 Acute and chronic respiratory failure, unspecified whether with hypoxia or hypercapnia; N17.0 Acute kidney failure with tubular necrosis; I50.33 Acute on chronic diastolic (congestive) heart failure; I21.A1 Myocardial infarction type 2; J44.1 Chronic obstructive pulmonary disease with (acute) exacerbation; I48.92 Unspecified atrial flutter; J45.901 Unspecified asthma with (acute) exacerbation; E44.0 Moderate protein-calorie malnutrition; I13.2 Hypertensive heart and chronic kidney disease with heart failure and with stage 5 chronic kidney disease, or end stage renal disease; N18.5 Chronic kidney disease, stage 5; Z68.43 Body mass index [BMI] 50.0-59.9, adult; E87.2 Acidosis; L03.116 Cellulitis of left lower limb; N13.6 Pyonephrosis; K31.84 Gastroparesis; K76.0 Fatty (change of) liver, not elsewhere classified; I48.91 Unspecified atrial fibrillation; E11.621 Type 2 diabetes mellitus with foot ulcer; E11.22 Type 2 diabetes mellitus with diabetic chronic kidney disease; E79.0 Hyperuricemia without signs of inflammatory arthritis and tophaceous disease; L97.529 Non-pressure chronic ulcer of other part of left foot with unspecified severity; L97.519 Non-pressure chronic ulcer of other part of right foot with unspecified severity; B95.2 Enterococcus as the cause of diseases classified elsewhere; B96.1 Klebsiella pneumoniae [K. pneumoniae] as the cause of diseases classified elsewhere; E11.65 Type 2 diabetes mellitus with hyperglycemia; E78.00 Pure hypercholesterolemia, unspecified; E66.01 Morbid (severe) obesity due to excess calories; E78.5 Hyperlipidemia, unspecified; E83.39 Other disorders of phosphorus metabolism; G47.30 Sleep apnea, unspecified; I25.10 Atherosclerotic heart disease of native coronary artery without angina pectoris; I25.2 Old myocardial infarction; Z79.51 Long term (current) use of inhaled steroids; Z79.82 Long term (current) use of aspirin; Z79.84 Long term (current) use of oral hypoglycemic drugs; Z79.899 Other long term (current) drug therapy; Z80.3 Family history of malignant neoplasm of breast; Z80.1 Family history of malignant neoplasm of trachea, bronchus and lung; Z80.41 Family history of malignant neoplasm of ovary; Z80.8 Family history of malignant neoplasm of other organs or systems; Z81.8 Family history of other mental and behavioral disorders; Z82.0 Family history of epilepsy and other diseases of the nervous system; Z82.3 Family history of stroke; Z82.49 Family history of ischemic heart disease and other diseases of the circulatory system; Z82.5 Family history of asthma and other chronic lower respiratory diseases; Z82.62 Family history of osteoporosis; Z83.3 Family history of diabetes mellitus; Z86.14 Personal history of Methicillin resistant Staphylococcus aureus infection; Z87.891 Personal history of nicotine dependence; Z88.1 Allergy status to other antibiotic agents; Z82.61 Family history of arthritis
CPT/HCPCS: 36415; 36600; 43235; 71045; 73060; 74176; 76705; 76775; 78264; 80048; 80053; 80061; 81001; 82550; 82570; 82805; 82962; 83036; 83690; 83735; 83880; 84100; 84132; 84156; 84300; 84484; 84550; 85025; 85610; 85730; 86141; 86704; 86706; 86708; 86803; 87040; 87081; 87086; 87088; 87186; 87205; 87340; 93005; 94640; 94660; 96361; 96365; 96366; 96375; 97116; 97163; 97530; G0378; J0610; J1815; J2185; J2250; J2405; J2704; J3490; J7060

== ENCOUNTER 2019-03-20 17:06 | Emergency (ER) | payer OTHER, MEDICAID ==
[~2019-03-20] VITALS: Ht 165.1 cm; Wt 145.1 kg
[~2019-03-20 17:06] MED LIST changes: +POTA-180 PO; -PRE1T PO; +PRE5T PO
[2019-03-20 19:06] LABS: Eosinophils # (auto) 0.1 uL; Hemoglobin 8.8 g/dL (12.2-16.2); Lymphocytes # (auto) 1.1 uL; Red Blood Cells 3.51 10^6/uL (4.0-5.20)
[2019-03-20 19:08] LABS: Basophils # (auto) 0.1 uL; Basophils % (auto) 0.6 % (0.0-2.0); Eosinophils % (auto) 1.5 % (0.0-7.0); Hematocrit 27.8 % (36.0-46.0); Mean Corpuscular Hemoglobin 25.1 pg (28.0-32.0); Mean Corpuscular Hgb Conc. 31.7 g/dL (32.0-36.0); Mean Corpuscular Volume 79.1 fL (80.0-100.0); Monocytes # (auto) 0.8 uL; Monocytes % (auto) 8.3 % (0.0-12.0); Neutrophils # (auto) 7.4 uL; Neutrophils % (auto) 77.6 % (37.0-80.0); Platelet Count (auto) 275 10^3/uL (140-450); White Blood Cell 9.6 10^3/uL (4.4-10.8)
[2019-03-20 19:09] LABS: Red Cell Distribution Width 20.8 % (11.8-14.3)
[2019-03-20 19:21] LABS: INR 1.14 (0.9-1.15); Partial Thromboplastin Time 42.6 sec (23.64-32.05)
[2019-03-20 19:25] LABS: Alanine Aminotransferase 13 U/L (13-56); Albumin 2.3 g/dL (3.4-5.0); Anion Gap 9 (5-15); Aspartate Aminotransferase 11 U/L (15-37); BUN/Creatinine Ratio 16.1; Blood Urea Nitrogen 22 mg/dL (7-18); Calcium 8.9 mg/dL (8.5-10.1); Carbon Dioxide 29 mmol/L (21-32); Chloride 103 mmol/L (98-107); GFR African American 50 mL/min; GFR Non-African American 42 mL/min; Glucose 108 mg/dL (74-106); Potassium 3.9 mmol/L (3.5-5.1); Sodium 141 mmol/L (136-145)
[2019-03-20 19:30] LABS: Alkaline Phosphatase 89 U/L (45-117); Bilirubin, Total 0.4 mg/dL (0.2-1.0); Total Protein 7.2 g/dL (6.4-8.2)
[2019-03-21 00:23] VITALS: BP 145/78
== END 2019-03-21 02:10 | disposition home or self-care (01) ==
LOC: EDBD 17:06 → ER 17:16
DX: I24.9 Acute ischemic heart disease, unspecified (principal); I48.91 Unspecified atrial fibrillation; J44.1 Chronic obstructive pulmonary disease with (acute) exacerbation; I13.0 Hypertensive heart and chronic kidney disease with heart failure and stage 1 through stage 4 chronic kidney disease, or unspecified chronic kidney disease; E11.22 Type 2 diabetes mellitus with diabetic chronic kidney disease; I25.10 Atherosclerotic heart disease of native coronary artery without angina pectoris; I50.23 Acute on chronic systolic (congestive) heart failure; I25.2 Old myocardial infarction; N18.9 Chronic kidney disease, unspecified; F12.10 Cannabis abuse, uncomplicated; Z88.1 Allergy status to other antibiotic agents; Z88.8 Allergy status to other drugs, medicaments and biological substances; Z87.891 Personal history of nicotine dependence
CPT/HCPCS: 36415; 71045; 80053; 83880; 84484; 85025; 85610; 85730; 99291

== ENCOUNTER 2019-05-05 16:06 | Inpatient (IN) | payer OTHER, MEDICAID ==
[~2019-05-05] VITALS: Ht 154.9 cm; Wt 146.1 kg
[2019-05-05] MEDS ORDERED: ASPirin 81 mg TAB PO ONE (17:00)
[2019-05-05 17:15] LABS: Basophils # (auto) 0.1 uL; Eosinophils # (auto) 0.2 uL; Eosinophils % (auto) 1.2 % (0.0-7.0); White Blood Cell 13.9 10^3/uL (4.4-10.8)
[2019-05-05 17:16] LABS: Basophils % (auto) 0.8 % (0.0-2.0); Hemoglobin 10.1 g/dL (12.2-16.2); Lymphocytes # (auto) 2.3 uL; Lymphocytes % (auto) 16.3 % (10.0-50.0); Mean Corpuscular Hemoglobin 24.7 pg (28.0-32.0); Mean Corpuscular Hgb Conc. 30.4 g/dL (32.0-36.0); Mean Corpuscular Volume 81.3 fL (80.0-100.0); Monocytes # (auto) 0.9 uL; Monocytes % (auto) 6.4 % (0.0-12.0); Neutrophils # (auto) 10.5 uL; Neutrophils % (auto) 75.3 % (37.0-80.0); Nucleated Red Blood Cells % 0.1 %; Platelet Count (auto) 305 10^3/uL (140-450); Red Blood Cells 4.06 10^6/uL (4.0-5.20); Red Cell Distribution Width 20.4 % (11.8-14.3)
[2019-05-05 17:37] LABS: Albumin 2.7 g/dL (3.4-5.0); BUN/Creatinine Ratio 16.7; Potassium 3.9 mmol/L (3.5-5.1)
[2019-05-05 17:42] LABS: Bilirubin, Total 0.5 mg/dL (0.2-1.0); Total Protein 7.3 g/dL (6.4-8.2)
[2019-05-05 18:07] LABS: Urine Bacteria MANY /hpf (None Seen); Urine Blood 2+ /uL (Negative); Urine Mucus FEW (None Seen); Urine Specific Gravity 1.019 (1.001-1.035); Urine WBC 51 /hpf (0 - 5); Urine WBC Clumps PRESENT /hpf (None Seen)
[2019-05-05] MEDS ORDERED: ACETAMINOPHEN 500 MG TAB PO PRN (22:15)
[2019-05-05] MEDS ORDERED: DEXTROSE (50%) 50ML SYRG IV PRN (22:15)
[2019-05-05] MEDS ORDERED: VANCOMYCIN PER PHARMACY 0 MG IV SCH (22:15)
[2019-05-05] MEDS ORDERED: TEMAZEPAM 15 MG CAP PO PRN (22:15)
[2019-05-05] MEDS ORDERED: FUROSEMIDE 40 MG/4 ML VIAL IV ONE (22:30)
[2019-05-05] MEDS ORDERED: cefTRIAXone 1GM/50ML D5W 50 ML IV ONE (23:00)
[2019-05-05] MEDS: MORPHINE SULF INJ 2 MG/ML SYRINGE 1ML IV PRN (23:31)
[2019-05-05] MEDS: ONDANSETRON HCL 4 MG/2 ML VIAL IV PRN (23:31)
[2019-05-06] VITALS (7 sets, daily range): BP systolic 125–151; BP diastolic 66–96
[2019-05-06] MEDS ORDERED: SODIUM CHLORIDE 0.9% 500 ML IV ONE (00:30)
--- NOTE | 2019-05-06 00:32 | NUR ---
Telemetry admit from ER RUTH MARTINEZ admitted to Telemetry unit after SBAR received. Patient oriented to Tono Borges, primary RN, unit, room, bed, and unit policies regarding patient care and visiting hours. Patient now on continuous telemetry monitoring, tele box # [] and telemetry reading on arrival to unit is [SR [address] AND [address] ELEVATION]. Patient placed on bedside oxygen, weighed by bedscale and encouraged to call if they need something. All questions and concerns addressed, patient verbalized understanding. Note: []
--- NOTE | 2019-05-06 00:33 | NUR ---
MRSA SWAB COLLECTED AND SENT. CONTINUE TO MONITOR.
[2019-05-06] MEDS ORDERED: INFLUENZA QUAD 2019-2020 0.5ml SYRG IM ONE (01:45)
[2019-05-06] MEDS: IPRATROPIUM BROM 0.5 MG/2.5ML INH SOL NEB SCH ×6 (02:22→22:55)
[2019-05-06] MEDS: ALBUTEROL SULF 2.5 MG/0.5ML(0.5%) NEB SOLN NEB SCH ×6 (02:22→22:55)
--- NOTE | 2019-05-06 03:14 | NUR ---
Respiratory note: TRIED TO WAKE PT UP TO PLACE ON BIPAP AT NOC ORDERS. PT IS SLEEPING AND WOULDN'T ALLOW ME TO PUT IT ON. PT IS CURRENTLY ON 3 L/M NC: HR 77, RR 18, SPO2 94%. PT IS SLEEPING COMFORTABLY WITH NO S/S OF SOB OR RESPIRATORY DISTRESS. WILL CONTINUE TO MONITOR.
--- NOTE | 2019-05-06 03:46 | NUR ---
PATIENT SLEEPING. NO S/S OF DISTRESS AND PAIN NOTED. ALARM ON. CALL [facility] WITHIN REACH. CONTINUE TO MONITOR.
[2019-05-06] MEDS: ACCU-CHEK COMFORT CURVE STRIP VI SCH ×4 (06:41→21:55)
[2019-05-06] MEDS: MORPHINE SULF INJ 2 MG/ML SYRINGE 1ML IV PRN ×4 (06:41→21:13)
[2019-05-06] MEDS: InsuLIN REG 1unit/0.01ml Soln (100units/ml) SC SCH ×4 (06:42→21:55)
--- NOTE | 2019-05-06 06:42 | NUR ---
MEDICATED PATIENT FOR PAIN @ 01/28. ACCU-CHECK, BS 121. NO COVERAGE. CONTINUE TO MONITOR.
[2019-05-06 06:48] LABS: Basophils # (auto) 0.1 uL; Eosinophils # (auto) 0.2 uL; Eosinophils % (auto) 2.1 % (0.0-7.0); Lymphocytes # (auto) 1.6 uL; Monocytes # (auto) 0.7 uL
[2019-05-06 06:50] LABS: Basophils % (auto) 0.8 % (0.0-2.0); Hematocrit 28.1 % (36.0-46.0); Lymphocytes % (auto) 20.9 % (10.0-50.0); Mean Corpuscular Hemoglobin 25.7 pg (28.0-32.0); Mean Corpuscular Volume 80.4 fL (80.0-100.0); Monocytes % (auto) 8.6 % (0.0-12.0); Neutrophils # (auto) 5.1 uL; Neutrophils % (auto) 67.6 % (37.0-80.0); Nucleated Red Blood Cells % 0.1 %; Platelet Count (auto) 225 10^3/uL (140-450); Red Blood Cells 3.49 10^6/uL (4.0-5.20); White Blood Cell 7.5 10^3/uL (4.4-10.8)
[2019-05-06 07:01] LABS: Calcium 8.4 mg/dL (8.5-10.1); Potassium 3.9 mmol/L (3.5-5.1)
[2019-05-06 07:04] LABS: BUN/Creatinine Ratio 17.7
[2019-05-06 07:17] LABS: Red Cell Distribution Width 20.4 % (11.8-14.3)
--- NOTE | 2019-05-06 08:00 | NUR ---
Received pt resting in bed, call light within reach, commode at bed side, pt reports mild pain on generalized chest and back 6/10 with cough, pt was given pain medication, will continue to monitor pt.
[2019-05-06] MEDS ORDERED: FUROSEMIDE 40 MG/4 ML VIAL IV SCH (10:00)
[2019-05-06] MEDS ORDERED: predniSONE 20 MG TAB PO SCH (10:00)
[2019-05-06] MEDS: cefTRIAXone 1GM/50ML D5W 50 ML IV SCH (10:06)
[2019-05-06] MEDS: GABAPENTIN 300 MG CAP PO SCH ×2 (10:07→21:55)
[2019-05-06] MEDS: PANTOPRAZOLE 40 MG TAB PO SCH (10:07)
[2019-05-06] MEDS: VERAPAMIL HCL 40 MG TAB PO SCH (10:07)
[2019-05-06] MEDS: ASPirin-EC 81 mg tab PO SCH (10:07)
[2019-05-06] MEDS: BUDESONIDE (INHALATION) 0.5 MG/2 ML NEB NEB SCH ×2 (10:40→22:55)
--- NOTE | 2019-05-06 11:45 | NUR ---
Dr. Huang at bed side to see pt.
--- NOTE | 2019-05-06 19:30 | NUR ---
RECEIVED PATIENT FROM DAY SHIFT RN. PATIENT RESTING IN BED. NO S/S OF DISTRESS NOTED. C/O PAIN @ 8/10 AFTER PAIN MEDICATION GIVEN EARLIER. REINFORCED PAIN MANAGEMENT SCHEDULE. WILL COME BACK FOR PAIN MEDICATION LATER WHEN THE TIME IS DUE AND PER PATIENT REQUESTS. PATIENT STATED SHE'S FEELING BETTER TODAY. POC INSTRUCTED AND ENCOURAGED PATIENT TO CALL FOR [employer]MER IF NEEDED. BED IN LOWEST POSITION WITH SIDE RAILS UP X 2. CALL LOPE[facility] WITHIN REACH. ALARM ON. CONTINUE TO MONITOR FOR CHANGES Q1H AND PRN.
--- NOTE | 2019-05-06 21:05 | NUR ---
ASSISTED PATIENT TO BEDSIDE COMMODE AND BACK TO BED. NO S/S OF DISTRESS NOTED. PATIENT C/O PAIN @ 03/31. WILL COME BACK FOR PAIN MEDICATION LATER. CONTINUE TO MONITOR.
--- NOTE | 2019-05-06 21:13 | NUR ---
MEDICATED PATIENT FOR PAIN @ 03/31. CONTINUE TO MONITOR.
[2019-05-06] MEDS: FUROSEMIDE 40 MG/4 ML VIAL IV SCH (21:54)
[2019-05-06] MEDS: ATORVASTATIN 20 MG TAB PO SCH (21:55)
--- NOTE | 2019-05-06 22:00 | NUR ---
ACCU-CHECK, BS 173, INSULIN GIVEN ORDERED. CONTINUE TO MONITOR.
--- NOTE | 2019-05-06 23:35 | NUR ---
ASSISTED PATIENT TO BEDSIDE COMMODE. PATIENT TOLERATED WELL. CONTINUE CARE.
--- NOTE | 2019-05-07 01:28 | NUR ---
ASSISTED PATIENT TO BEDSIDE COMMODE. PATIENT TOLERATED WELL. CONTINUE CARE.
--- NOTE | 2019-05-07 03:28 | NUR ---
PATIENT SLEEPING. NO S/S OF DISTRESS AND PAIN NOTED. C PAP IS ON. CONTINUE TO MONITOR.
[2019-05-07 05:33] VITALS: BP 133/82
[2019-05-07] MEDS: BUDESONIDE (INHALATION) 0.5 MG/2 ML NEB NEB SCH ×2 (05:54→22:10)
[2019-05-07] MEDS: ALBUTEROL SULF 2.5 MG/0.5ML(0.5%) NEB SOLN NEB SCH ×5 (05:54→22:10)
[2019-05-07] MEDS: IPRATROPIUM BROM 0.5 MG/2.5ML INH SOL NEB SCH ×5 (05:54→22:10)
--- NOTE | 2019-05-07 06:10 | NUR ---
ASSISTED PATIENT TO BEDSIDE COMMODE. HAD BM. PATIENT TOLERATED WELL. CONTINUE CARE.
[2019-05-07] MEDS: ACCU-CHEK COMFORT CURVE STRIP VI SCH ×4 (06:24→22:00)
[2019-05-07] MEDS: InsuLIN REG 1unit/0.01ml Soln (100units/ml) SC SCH ×4 (06:24→22:00)
--- NOTE | 2019-05-07 06:26 | NUR ---
ACCU-CHECK, BS 116, NO COVERAGE. CONTINUE TO MONITOR.
[2019-05-07] MEDS: MORPHINE SULF INJ 2 MG/ML SYRINGE 1ML IV PRN ×3 (06:49→20:33)
--- NOTE | 2019-05-07 06:49 | NUR ---
MEDICATED PATIENT FOR PAIN @ 04/30. CONTINUE TO MONITOR.
--- NOTE | 2019-05-07 07:30 | NUR ---
Opening Shift Note Assumed care of patient, awake and alert in bed watching TV. No S/S of distress/SOB or pain. Instructed on POC and to call for assist PRN, call light within reach and bed in lowest position. Will continue to monitor for changes Q1hr and PRN.
[2019-05-07 08:00] VITALS: BP 140/79
[2019-05-07] MEDS: FUROSEMIDE 40 MG/4 ML VIAL IV SCH (09:00)
[2019-05-07] MEDS: cefTRIAXone 1GM/50ML D5W 50 ML IV SCH (09:00)
[2019-05-07] MEDS: VERAPAMIL HCL 40 MG TAB PO SCH (09:01)
[2019-05-07] MEDS: GABAPENTIN 300 MG CAP PO SCH ×2 (09:01→22:00)
[2019-05-07] MEDS: ASPirin-EC 81 mg tab PO SCH (09:01)
[2019-05-07] MEDS: PANTOPRAZOLE 40 MG TAB PO SCH (09:02)
[2019-05-07 09:10] LABS: Basophils # (auto) 0.1 uL; Basophils % (auto) 0.6 % (0.0-2.0); Eosinophils # (auto) 0.2 uL; Hematocrit 30.4 % (36.0-46.0); Mean Corpuscular Hemoglobin 25.5 pg (28.0-32.0)
[2019-05-07 09:13] LABS: Eosinophils % (auto) 1.9 % (0.0-7.0); Hemoglobin 9.6 g/dL (12.2-16.2); Lymphocytes # (auto) 1.2 uL; Lymphocytes % (auto) 11.3 % (10.0-50.0); Mean Corpuscular Hgb Conc. 31.6 g/dL (32.0-36.0); Mean Corpuscular Volume 80.7 fL (80.0-100.0); Monocytes # (auto) 0.7 uL; Monocytes % (auto) 6.6 % (0.0-12.0); Neutrophils # (auto) 8.7 uL; Neutrophils % (auto) 79.6 % (37.0-80.0); Platelet Count (auto) 248 10^3/uL (140-450); Red Blood Cells 3.77 10^6/uL (4.0-5.20)
[2019-05-07 09:15] LABS: Red Cell Distribution Width 20.6 % (11.8-14.3)
[2019-05-07 09:35] LABS: Albumin 2.6 g/dL (3.4-5.0); BUN/Creatinine Ratio 17.6; Calcium 8.7 mg/dL (8.5-10.1); Magnesium 2.1 mg/dL (1.6-2.6); Potassium 4.2 mmol/L (3.5-5.1)
[2019-05-07 09:43] LABS: Bilirubin, Total 0.5 mg/dL (0.2-1.0); Total Protein 7.1 g/dL (6.4-8.2)
--- NOTE | 2019-05-07 09:50 | NUR ---
Dr. Huang with patient discussing plan of care.
[2019-05-07 13:00] VITALS: BP 139/86
[2019-05-07 17:00] VITALS: BP 157/93
[2019-05-07 20:00] VITALS: BP 140/79
[2019-05-07] MEDS: ATORVASTATIN 20 MG TAB PO SCH (22:00)
[2019-05-07 22:26] VITALS: BP 125/74
[2019-05-08] MEDS: IPRATROPIUM BROM 0.5 MG/2.5ML INH SOL NEB SCH ×4 (02:26→14:45)
[2019-05-08] MEDS: ALBUTEROL SULF 2.5 MG/0.5ML(0.5%) NEB SOLN NEB SCH ×4 (02:26→14:45)
[2019-05-08] MEDS: HYDROcodone-ACET 5/325MG TAB PO PRN ×3 (03:30→16:19)
[2019-05-08] MEDS: ONDANSETRON HCL 4 MG/2 ML VIAL IV PRN (05:00)
[2019-05-08 05:29] VITALS: BP 124/70
[2019-05-08] MEDS: BUDESONIDE (INHALATION) 0.5 MG/2 ML NEB NEB SCH (06:42)
[2019-05-08] MEDS: InsuLIN REG 1unit/0.01ml Soln (100units/ml) SC SCH ×3 (07:00→16:50)
[2019-05-08] MEDS: ACCU-CHEK COMFORT CURVE STRIP VI SCH ×3 (07:09→16:24)
[2019-05-08 08:00] VITALS: BP 117/71
--- NOTE | 2019-05-08 08:00 | NUR ---
Received pt resting in bed, call light with in reach, no pain or distress noted or reported at this time, will continue to monitor pt.
[2019-05-08 09:00] VITALS: BP 117/71
[2019-05-08] MEDS ORDERED: FUROSEMIDE 40 MG/4 ML VIAL IV SCH (10:00)
[2019-05-08] MEDS: GABAPENTIN 300 MG CAP PO SCH (10:06)
[2019-05-08] MEDS: cefTRIAXone 1GM/50ML D5W 50 ML IV SCH (10:06)
[2019-05-08] MEDS: VERAPAMIL HCL 40 MG TAB PO SCH (10:19)
[2019-05-08] MEDS: PANTOPRAZOLE 40 MG TAB PO SCH (10:20)
[2019-05-08] MEDS: ASPirin-EC 81 mg tab PO SCH (10:20)
[2019-05-08 13:00] VITALS: BP 130/75
--- NOTE | 2019-05-08 16:57 | NUR ---
Discharge planning per SS consult,patient has orders for SNF placement. Encountered patient for a choice, she stated she had been to [facility], and would like to go back. I advised I would forward that request but as a back up listed [facility] and [facility]. Referral was faxed to [facility], placed a follow up call, spoke with Dru and was advised that they will accept this patient to room [address]. Transportation was arranged from [facility] with [employer] [phone] via [employer] and the pick up driver time will be at 6pm. Obtained auth from [facility] for [id number], and for [id number]. Nurse Shanika and patient were advised of dc plan. Addendum: 05/08/19 at 1705 by GA FORD SS Amended: Links added.
[2019-05-08 17:31] VITALS: BP 134/83
[2019-05-08 17:32] VITALS: BP 134/78
--- NOTE | 2019-05-08 17:40 | NUR ---
CALLED PT'S SON MAXI AT [phone] TO INFORM OF PT'S TRANSFER, WRONG NUMBER, CALLED PT'S DAUGHTER KAREL AT [phone] TO INFORM THAT PT WILL BE TRANSFER TO [facility], LEFT A MESSAGE. PT INFORMED, PT STATED THAT SHE HAS ALREADY INFORMED HER DAUGHTER OF THE TRANSFER.
--- NOTE | 2019-05-08 17:54 | NUR ---
REPORT GIVEN TO ANITA JADE AT [facility], PHONE NUMBER [phone].
--- NOTE | 2019-05-08 18:20 | NUR ---
Discharge instructions given as ordered. Encourage to follow up with PMD as instructed. All questions and concerns addressed. Patient verbalized understanding. Medication reconciliation form completed and copy given to patient. No home medications held in Pharmacy, and needed vaccines given. Awaiting for transportation.
--- NOTE | 2019-05-08 19:39 | NUR ---
Discharge instructions given as ordered. All questions and concerns addressed. Patient verbalized understanding. IV removed with catheter intact, pressure dressing applied, donohue catheter removed. Medication reconciliation form completed and copy given to patient. Home medications held in Pharmacy returned to patient, and needed vaccines given. Telemetry unit returned to ICU. Report given to ANITA sommers at [facility]. Patient transported by [employer] with all personal belongings. No distress noted at time of departure.
== END 2019-05-08 19:35 | DRG 291 ==
LOC: EDBD 16:06 → ER 16:06 → EDUNIT# 16:06 → OVERFLOW 16:07 → TELE 22:23 → TELE-EAST 23:48
PROVIDERS: ADMIT Nurse Practitioner Acute Care; ATTEND Internal Medicine
DX: I13.0 Hypertensive heart and chronic kidney disease with heart failure and stage 1 through stage 4 chronic kidney disease, or unspecified chronic kidney disease (principal); I50.33 Acute on chronic diastolic (congestive) heart failure; N12 Tubulo-interstitial nephritis, not specified as acute or chronic; E44.0 Moderate protein-calorie malnutrition; Z68.44 Body mass index [BMI] 60.0-69.9, adult; N18.3 Chronic kidney disease, stage 3 (moderate); E78.5 Hyperlipidemia, unspecified; E11.22 Type 2 diabetes mellitus with diabetic chronic kidney disease; I25.10 Atherosclerotic heart disease of native coronary artery without angina pectoris; Z99.81 Dependence on supplemental oxygen; J44.9 Chronic obstructive pulmonary disease, unspecified; G47.30 Sleep apnea, unspecified; E66.01 Morbid (severe) obesity due to excess calories; M19.90 Unspecified osteoarthritis, unspecified site; I48.91 Unspecified atrial fibrillation; K21.9 Gastro-esophageal reflux disease without esophagitis; E11.65 Type 2 diabetes mellitus with hyperglycemia; E11.21 Type 2 diabetes mellitus with diabetic nephropathy; D64.9 Anemia, unspecified; I70.0 Atherosclerosis of aorta; Z86.718 Personal history of other venous thrombosis and embolism; I25.2 Old myocardial infarction; Z88.0 Allergy status to penicillin; Z88.1 Allergy status to other antibiotic agents; Z79.899 Other long term (current) drug therapy; Z79.82 Long term (current) use of aspirin; Z79.84 Long term (current) use of oral hypoglycemic drugs; Z79.51 Long term (current) use of inhaled steroids; Z82.49 Family history of ischemic heart disease and other diseases of the circulatory system; Z82.3 Family history of stroke; Z83.3 Family history of diabetes mellitus; Z82.0 Family history of epilepsy and other diseases of the nervous system; Z82.5 Family history of asthma and other chronic lower respiratory diseases; Z81.8 Family history of other mental and behavioral disorders; Z82.62 Family history of osteoporosis; Z80.1 Family history of malignant neoplasm of trachea, bronchus and lung; Z80.3 Family history of malignant neoplasm of breast; Z80.41 Family history of malignant neoplasm of ovary; Z80.8 Family history of malignant neoplasm of other organs or systems; Z23 Encounter for immunization
CPT/HCPCS: 36415; 71045; 80048; 80053; 81001; 82962; 83036; 83735; 83880; 84484; 85025; 87081; 87086; 93005; 94640; 94660; 97116; 97163; 97530; 99291; G0378; J0696; J1815; J2405